=== PATIENT | female | born 1960 | race Caucasian/White ===

== ENCOUNTER → 2016-06-29 | Outpatient (REF) | payer MEDICARE, MEDICAID | LOC: M LAB REF 13:19 | PROVIDERS: ATTEND Internal Medicine Medical Oncology | DX: C56.9 Malignant neoplasm of unspecified ovary (principal); G62.0 Drug-induced polyneuropathy ==

== ENCOUNTER → 2016-10-14 | Outpatient (REF) | payer MEDICARE, MEDICAID | LOC: M LAB REF 12:52 | PROVIDERS: ATTEND Internal Medicine Medical Oncology | DX: C56.9 Malignant neoplasm of unspecified ovary (principal) ==

== ENCOUNTER → 2017-02-21 | Outpatient (REF) | payer MEDICARE, MEDICAID | LOC: M LAB REF 08:06 | PROVIDERS: ATTEND Internal Medicine Medical Oncology | DX: C56.9 Malignant neoplasm of unspecified ovary (principal) ==

== ENCOUNTER → 2017-07-20 | Outpatient (REF) | payer MEDICARE, MEDICAID ==
[2017-07-22 10:57] LABS: CA 125 11.5 U/ML (<30.2)
== END ==
LOC: M LAB REF 13:33
DX: C56.9 Malignant neoplasm of unspecified ovary (principal)
CPT/HCPCS: 86304

== ENCOUNTER → 2017-08-02 | Outpatient (CLI) | payer MEDICARE, MEDICAID | LOC: M PLARAD 08:53 | DX: D56.9 Thalassemia, unspecified (principal); C56.1 Malignant neoplasm of right ovary (principal); C56.2 Malignant neoplasm of left ovary; C79.51 Secondary malignant neoplasm of bone | CPT/HCPCS: 78815 ==

== ENCOUNTER → 2017-08-23 | Outpatient (REF) | payer MEDICARE, MEDICAID ==
[2017-08-23 13:28] LABS: INR 0.94; PARTIAL THROMBOPLASTIN TIME 32.3 SECONDS (26.8-37.9); PROTHROMBIN TIME 12.6 SECONDS (12.4-14.5)
== END ==
LOC: M LAB REF 11:57
DX: C56.9 Malignant neoplasm of unspecified ovary (principal); Z01.812 Encounter for preprocedural laboratory examination
CPT/HCPCS: 85610

== ENCOUNTER → 2017-09-06 | Outpatient (CLI) | payer MEDICARE, MEDICAID ==
[~2017-09-06] MED LIST: LIDOCAINE 1% MDV 20ML VIAL As Ordered
== END ==
LOC: M RADPRO 08:42
DX: R91.8 Other nonspecific abnormal finding of lung field (principal); C79.51 Secondary malignant neoplasm of bone; Z88.0 Allergy status to penicillin; Z79.899 Other long term (current) drug therapy
CPT/HCPCS: 32405

== ENCOUNTER → 2017-11-04 | Outpatient (REF) | payer MEDICARE, MEDICAID ==
[2017-11-04 12:21] LABS: INR 0.92; PROTHROMBIN TIME 12.4 SECONDS (12.4-14.5)
[2017-11-04 12:22] LABS: PARTIAL THROMBOPLASTIN TIME 30.3 SECONDS (26.8-37.9)
[2017-11-04 13:05] LABS: CA 125 12.1 U/ML (<30.2)
== END ==
LOC: M LAB REF 12:00
DX: C56.9 Malignant neoplasm of unspecified ovary (principal)
CPT/HCPCS: 86304

== ENCOUNTER → 2017-11-15 | Outpatient (CLI) | payer MEDICARE, MEDICAID ==
[~2017-11-15] MED LIST changes: +CLINDAMYCIN 600 MG/50 ML PREMIX BAG As Ordered; -LIDOCAINE 1% MDV 20ML VIAL As Ordered; +LIDOCAINE 2% MDV 20 ML VIAL As Ordered
== END | disposition home or self-care (01) ==
LOC: M IRPRO 09:32
DX: C56.9 Malignant neoplasm of unspecified ovary (principal); C79.9 Secondary malignant neoplasm of unspecified site
CPT/HCPCS: 36561

== ENCOUNTER → 2017-11-25 | Outpatient (REF) | payer MEDICARE, MEDICAID ==
[2017-11-25 14:37] LABS: CA 125 10.6 U/ML (<30.2)
== END ==
LOC: M LAB REF 13:30
DX: C56.9 Malignant neoplasm of unspecified ovary (principal)
CPT/HCPCS: 86304

== ENCOUNTER 2017-12-09 11:58 | Emergency (ER) | payer MEDICARE, MEDICAID ==
[2017-12-09] MEDS: SODIUM CHLORIDE 0.9% INJ 10 ML SYR IV (13:20)
== END 2017-12-09 13:20 | disposition home or self-care (01) ==
LOC: M ED 11:58
DX: R55 Syncope and collapse (principal); T45.1X5A Adverse effect of antineoplastic and immunosuppressive drugs, initial encounter; C56.9 Malignant neoplasm of unspecified ovary; Y92.9 Unspecified place or not applicable; Y93.9 Activity, unspecified; Z79.899 Other long term (current) drug therapy; Z88.0 Allergy status to penicillin
CPT/HCPCS: 86304

== ENCOUNTER → 2017-12-16 | Outpatient (REF) | payer MEDICARE, MEDICAID | LOC: M LAB REF 13:18 | DX: C56.9 Malignant neoplasm of unspecified ovary (principal); C78.2 Secondary malignant neoplasm of pleura; C79.51 Secondary malignant neoplasm of bone | CPT/HCPCS: 86304 ==

== ENCOUNTER 2017-12-24 12:34 | Inpatient (IN) | payer MEDICARE, MEDICAID ==
[2017-12-24 14:36] LABS: HEMATOCRIT 30.7 % (36.0-47.0); HEMOGLOBIN 10.4 g/dl (12.0-15.5); MEAN CORPUSCULAR HEMOGLOBIN 34.1 pg (27.0-33.0); MEAN CORPUSCULAR HGB CONC 33.9 g/dl (32.0-36.5); MEAN CORPUSCULAR VOLUME 100.7 fl (80.0-96.0); PLATELET COUNT, AUTOMATED 142 10^3/uL (150-450); RED BLOOD COUNT 3.05 10^6/uL (4.00-5.40); RED CELL DISTRIBUTION WIDTH 18.3 % (11.5-14.5)
[2017-12-24 14:37] LABS: ADD MANUAL DIFFER YES; DIFF SLIDE NUMBER 132; POS COUNT POS FLAG; POSITIVE MORPH POS FLAG
[2017-12-24 15:03] LABS: ALBUMIN 3.5 GM/DL (3.2-5.2); ALKALINE PHOSPHATASE 158 U/L (45-117); ALT/SGPT 52 U/L (12-78); ANION GAP 7 MEQ/L (8-16); AST/SGOT 14 U/L (7-37); BILIRUBIN,DIRECT 0.1 MG/DL (0.0-0.2); BILIRUBIN,TOTAL 0.4 MG/DL (0.2-1.0); BLOOD UREA NITROGEN 15 MG/DL (7-18); CALCIUM LEVEL 8.7 MG/DL (8.5-10.1); CARBON DIOXIDE LEVEL 28 MEQ/L (21-32); CHLORIDE LEVEL 107 MEQ/L (98-107); GLOMERULAR FILTRATION RATE > 60.0 (>51); GLUCOSE, FASTING 109 MG/DL (70-100); SODIUM LEVEL 142 MEQ/L (136-145); TOTAL PROTEIN 7.9 GM/DL (6.4-8.2)
[2017-12-24 15:03] LABS: LACTIC ACID SEPSIS PROTOCOL 1.2 MMOL/L (0.4-2.0)
[2017-12-24 15:20] LABS: BANDS 6 % (< 11); LYMPHOCYTES 12 % (16-52); MONOCYTES 4 % (0-8); NEUTROPHILS 78 % (35-75)
[2017-12-24 15:21] LABS: PLATELET ESTIMATE DECREASED (NORMAL); POLYCHROMASIA 1+
[2017-12-24 15:22] LABS: ANISOCYTOSIS 2+
[2017-12-24 16:02] LABS: APPEARANCE, URINE CLEAR (CLEAR); BACTERIA, URINE AUTO NEGATIVE (NEGATIVE); BILIRUBIN, URINE AUTO NEGATIVE (NEGATIVE); BLOOD, URINE BLOOD NEGATIVE (NEGATIVE); CALCIUM OXALATE CRYSTALS SMALL; COLOR, URINE YELLOW (YELLOW); GLUCOSE, URINE (UA) AUTO NEGATIVE (NEGATIVE); KETONE, URINE AUTO TRACE mg/dL (NEGATIVE); LEUKOCYTE ESTERASE, URINE AUTO TRACE (NEGATIVE); MUCUS, URINE SMALL (NEGATIVE); NITRITE, URINE AUTO NEGATIVE (NEGATIVE); PROTEIN, URINE AUTO 1+ mg/dL (NEGATIVE); RBC, URINE AUTO 3 /HPF (0-3); SPECIFIC GRAVITY URINE AUTO 1.035 (1.002-1.035); SQUAMOUS EPITHELIAL CELL UR AU 0 /HPF (0-6); WBC, URINE AUTO 1 /HPF (0-3)
[2017-12-24] MEDS: ONDANSETRON 4MG/2ML VIAL (J2405) IV (16:11)
[2017-12-24] MEDS ORDERED: PERCOCET 5MG/325MG TAB PO (16:45)
[2017-12-24] MEDS ORDERED: ONDANSETRON 4MG/2ML VIAL (J2405) IV (16:45)
[2017-12-24] MEDS ORDERED: BISACODYL 5 MG TAB PO (16:45)
[2017-12-24] MEDS ORDERED: ISOVUE-370 76% 100ML VIAL (Q9967) As Ordered (16:46)
[2017-12-24] MEDS: NS 1,000 ML IV (17:19)
[2017-12-24] MEDS: VANCOMYCIN HCL 1,000 MG, VIAL MATE ADAPTER 1 EACH in D5W 250 ML IV ×2 (17:19→23:49)
[2017-12-24] MEDS: PERCOCET 5MG/325MG TAB PO (18:53)
[2017-12-24] MEDS: CEFEPIME HCL 2 GM in D5W MINI-BAG PLUS 50 ML IV (21:30)
[2017-12-24] MEDS: GABAPENTIN 300 MG CAP PO (21:30)
[2017-12-24] MEDS: HEPARIN SOD (PORCINE) 5000 UNITS/ML VIAL SC (21:30)
[2017-12-24] MEDS: metroNIDAZOLE 500 MG in APPROPRIATE DILUENT 1 EA IV (22:24)
[2017-12-25] MEDS: metroNIDAZOLE 500 MG in APPROPRIATE DILUENT 1 EA IV ×3 (04:25→20:09)
[2017-12-25] MEDS: IPRATROPIUM 0.5MG/ALBUTEROL 2.5MG INH SOL UD 3ML (DUONEB)(J7620) NEB ×2 (04:42→11:32)
[2017-12-25] MEDS: CEFEPIME HCL 2 GM in D5W MINI-BAG PLUS 50 ML IV ×2 (05:44→18:16)
[2017-12-25] MEDS: HEPARIN SOD (PORCINE) 5000 UNITS/ML VIAL SC ×3 (05:44→21:07)
[2017-12-25 06:12] LABS: BASO % 0.2 % (0.0-1.0); HEMATOCRIT 27.7 % (36.0-47.0); HEMOGLOBIN 9.3 g/dl (12.0-15.5); IMMATURE GRANULOCYTE % 4.5 % (0-3.0); LYMPH # 0.9 10^3/uL (1.5-4.5); LYMPH % 7.4 % (24.0-44.0); MEAN CORPUSCULAR HEMOGLOBIN 33.8 pg (27.0-33.0); MEAN CORPUSCULAR HGB CONC 33.6 g/dl (32.0-36.5); MEAN CORPUSCULAR VOLUME 100.7 fl (80.0-96.0); MONO # 0.8 10^3/uL (0.0-0.8); MONO % 6.1 % (0.0-5.0); NEUTROPHILS # 10.1 10^3/uL (1.8-7.7); NEUTROPHILS % 81.8 % (36.0-66.0); PLATELET COUNT, AUTOMATED 148 10^3/uL (150-450); RED BLOOD COUNT 2.75 10^6/uL (4.00-5.40); RED CELL DISTRIBUTION WIDTH 18.7 % (11.5-14.5); WHITE BLOOD COUNT 12.3 10^3/uL (4.0-10.0)
[2017-12-25 06:35] LABS: ALBUMIN/GLOBULIN RATIO 0.75 (1.00-1.93); ALKALINE PHOSPHATASE 131 U/L (45-117); ALT/SGPT 42 U/L (12-78); ANION GAP 9 MEQ/L (8-16); AST/SGOT 12 U/L (7-37); BILIRUBIN,TOTAL 0.4 MG/DL (0.2-1.0); BLOOD UREA NITROGEN 10 MG/DL (7-18); CALCIUM LEVEL 8.2 MG/DL (8.5-10.1); CARBON DIOXIDE LEVEL 27 MEQ/L (21-32); CHLORIDE LEVEL 108 MEQ/L (98-107); CREATININE FOR GFR 0.59 MG/DL (0.55-1.30); GLOMERULAR FILTRATION RATE > 60.0 (>51); GLUCOSE, FASTING 169 MG/DL (70-100); POTASSIUM SERUM 3.7 MEQ/L (3.5-5.1); SODIUM LEVEL 144 MEQ/L (136-145)
[2017-12-25] MEDS: GABAPENTIN 300 MG CAP PO ×3 (10:44→21:07)
[2017-12-25] MEDS: OMEPRAZOLE 20 MG CAP PO (10:44)
[2017-12-25] MEDS: NS 1,000 ML IV ×3 (10:45→23:00)
[2017-12-25] MEDS: VANCOMYCIN HCL 1,000 MG, VIAL MATE ADAPTER 1 EACH in D5W 250 ML IV ×2 (10:45→21:08)
[2017-12-25] MEDS: PERCOCET 5MG/325MG TAB PO ×2 (14:39→22:51)
[2017-12-25] MEDS ORDERED: HEPARIN SOD (PORCINE) 5000 UNITS/ML VIAL As Ordered (21:03)
[2017-12-26] MEDS: metroNIDAZOLE 500 MG in APPROPRIATE DILUENT 1 EA IV (04:01)
[2017-12-26] MEDS: metroNIDAZOLE (FLAGYL) 500 MG TAB PO (05:18)
[2017-12-26] MEDS: CEFEPIME HCL 2 GM in D5W MINI-BAG PLUS 50 ML IV (05:19)
[2017-12-26] MEDS: HEPARIN SOD (PORCINE) 5000 UNITS/ML VIAL SC (05:19)
[2017-12-26] MEDS: OMEPRAZOLE 20 MG CAP PO (08:04)
[2017-12-26] MEDS: GABAPENTIN 300 MG CAP PO (08:04)
[2017-12-26] MEDS: PERCOCET 5MG/325MG TAB PO (08:05)
[2017-12-26 08:12] LABS: VANCOMYCIN LEVEL TROUGH 6.4 UG/ML (10.0-20.0)
[2017-12-26] MEDS: NS 1,000 ML IV (09:00)
[2017-12-26] MEDS: VANCOMYCIN HCL 1,000 MG, VIAL MATE ADAPTER 1 EACH in D5W 250 ML IV (09:00)
[2017-12-26 09:19] LABS: HEMATOCRIT 27.6 % (36.0-47.0); HEMOGLOBIN 9.6 g/dl (12.0-15.5); MEAN CORPUSCULAR HEMOGLOBIN 34.7 pg (27.0-33.0); MEAN CORPUSCULAR HGB CONC 34.8 g/dl (32.0-36.5); MEAN CORPUSCULAR VOLUME 99.6 fl (80.0-96.0); PLATELET COUNT, AUTOMATED 168 10^3/uL (150-450); RED BLOOD COUNT 2.77 10^6/uL (4.00-5.40); RED CELL DISTRIBUTION WIDTH 18.2 % (11.5-14.5); WHITE BLOOD COUNT 13.5 10^3/uL (4.0-10.0)
[2017-12-26 09:37] LABS: ANION GAP 9 MEQ/L (8-16); BLOOD UREA NITROGEN 10 MG/DL (7-18); CALCIUM LEVEL 8.2 MG/DL (8.5-10.1); CARBON DIOXIDE LEVEL 25 MEQ/L (21-32); CHLORIDE LEVEL 111 MEQ/L (98-107); CREATININE FOR GFR 0.54 MG/DL (0.55-1.30); GLOMERULAR FILTRATION RATE > 60.0 (>51); GLUCOSE, FASTING 134 MG/DL (70-100); POTASSIUM SERUM 3.7 MEQ/L (3.5-5.1); SODIUM LEVEL 145 MEQ/L (136-145)
== END 2017-12-26 11:30 | disposition home or self-care (01) | DRG 202 ==
LOC: M ED 12:34 → M ED INP 16:42 → M MS5PR 20:47
DX: J40 Bronchitis, not specified as acute or chronic (principal); C56.9 Malignant neoplasm of unspecified ovary; C78.02 Secondary malignant neoplasm of left lung; C78.2 Secondary malignant neoplasm of pleura; D72.829 Elevated white blood cell count, unspecified; K21.9 Gastro-esophageal reflux disease without esophagitis; K76.0 Fatty (change of) liver, not elsewhere classified; K44.9 Diaphragmatic hernia without obstruction or gangrene; M50.322 Other cervical disc degeneration at C5-C6 level; M50.223 Other cervical disc displacement at C6-C7 level; Z79.899 Other long term (current) drug therapy; Z88.0 Allergy status to penicillin; F17.200 Nicotine dependence, unspecified, uncomplicated; J44.9 Chronic obstructive pulmonary disease, unspecified

== ENCOUNTER → 2017-12-30 | Outpatient (REF) | payer MEDICARE, MEDICAID ==
[2017-12-30 15:06] LABS: CA 125 10.8 U/ML (<30.2)
== END ==
LOC: M LAB REF 13:27
DX: C56.9 Malignant neoplasm of unspecified ovary (principal)
CPT/HCPCS: 86304

== ENCOUNTER → 2018-02-10 | Outpatient (REF) | payer MEDICARE, MEDICAID ==
[2018-02-10 14:12] LABS: CA 125 9.9 U/ML (<30.2)
== END ==
LOC: M LAB REF 13:04
DX: Z00.00 Encounter for general adult medical examination without abnormal findings (principal); C56.9 Malignant neoplasm of unspecified ovary
CPT/HCPCS: 86304

== ENCOUNTER → 2018-03-03 | Outpatient (REF) | payer MEDICARE, MEDICAID ==
[2018-03-03 15:58] LABS: CA 125 12.7 U/ML (<30.2)
== END ==
LOC: M LAB REF 13:16
DX: C56.9 Malignant neoplasm of unspecified ovary (principal); C78.2 Secondary malignant neoplasm of pleura
CPT/HCPCS: 86304

== ENCOUNTER → 2018-05-09 | Outpatient (CLI) | payer MEDICARE, MEDICAID ==
[~2018-05-09] MED LIST changes: +ACID1CAP5 PO; +AMOX; +AMOX500T2 PO; -CLINDAMYCIN 600 MG/50 ML PREMIX BAG As Ordered; +GABA-843 PO; +LEVO500T3 PO; -LIDOCAINE 2% MDV 20 ML VIAL As Ordered; +OMEP40CA2 PO; +OXYC-403 PO; +PERC10TA26 PO; +TRAM50TA2 PO; +VENTAER INH; +VOLT1GEL15 TOP
--- NOTE | 2018-05-09 21:35 | REP ---
Whole body PET CT scanning for monitoring response for ovarian carcinoma: Comparison is the PET CT scan dated 08/02/2017. The patient underwent right parasternal nodule core biopsies on 09/06/2017. The biopsy specimen demonstrated fragments of well to moderately differentiated adenocarcinoma, consistent with metastatic ovarian primary. The Whole-body scanning is performed from skull base to the upper thighs, as previously. Neck and supraclavicular areas: There are no hypermetabolic foci. This is unchanged. Chest: There are multiple pleural based hypermetabolic foci in the left hemithorax, unchanged in size or number. There are two left upper lobe foci, unchanged. There are two right parasternal foci, unchanged. No new hypermetabolic foci are identified in the chest. Abdomen, pelvis and upper thighs: There are no hypermetabolic foci. This is unchanged. Impression: There are multiple hypermetabolic foci in the chest, not significantly changed from the prior study. No new foci are identified. The study is performed with 8.66 mCi of F 18 Electronically Signed by Rosalino Zhao MD 05/09/2018 09:26 P
== END ==
LOC: M PLARAD 10:49
PROVIDERS: ATTEND Internal Medicine Medical Oncology
DX: C56.1 Malignant neoplasm of right ovary (principal); C56.2 Malignant neoplasm of left ovary; R91.8 Other nonspecific abnormal finding of lung field
CPT/HCPCS: 78815; A9552

== ENCOUNTER → 2018-09-27 | Outpatient (CLI) | payer MEDICARE, MEDICAID ==
[~2018-09-27] MED LIST changes: +ZITHTAB PO
--- NOTE | 2018-09-27 13:52 | REP ---
PET/CT: HISTORY: Staging ovarian cancer. COMPARISONS: Comparison PET/CT study May 09, 2018. There is also a PET/CT study from August 02, 2017. TECHNIQUE: 52 minutes following the intravenous injection of a 9.33 mCi dose of F-18 FDG, three-dimensional PET scintigraphy is acquired from the skull base to the proximal thighs. Triplanar noncontrast CT scanning is acquired through the same anatomic range for attenuation correction, and image registration with scan parameters optimized to minimize radiation exposure to the patient. PET scintigraphy and CT datasets were fused and displayed on a workstation with multiplanar and projection display capability. PET/CT FINDINGS: There is multifocal hypermetabolic uptake involving lymph nodes and the left pleural space. Morphologically, these sites have not changed in size or increased in number. Several of the foci show higher in avidity. Multiple foci of hypermetabolic uptake are again seen distributed in the pleural space in the left hemithorax. The most avid of these is medially at the apex of the major fissure on the left where maximum standard uptake value today is 14.65. Most recent PET/CT avidity in this location was 8.98. The remainder of the theo hypermetabolic foci range from a maximum SUV value is 6.2-7.5. In addition there is a tiny left epicardial fat lymph node focus of borderline uptake (SUV 2.09). The focus noted to the right of the xyphoid process previously has maximum standard uptake value today of 4.23. A small portacaval lymph node is again seen demonstrating maximum standard uptake value of 3.56 today. Previously 2.2. No new theo focus. The study is otherwise unremarkable. IMPRESSION: There is multifocal metastatic hypermetabolic uptake principally involving the left pleural space and two or three lymph node foci. These are unchanged morphologically. Several demonstrate increased activity compared to the prior PET/CT. Electronically Signed by sEpinoza Landaverde MD 09/27/2018 02:57 P
== END ==
LOC: M PLARAD 08:41
PROVIDERS: ATTEND Internal Medicine Hematology & Oncology
DX: C56.1 Malignant neoplasm of right ovary (principal); R59.0 Localized enlarged lymph nodes
CPT/HCPCS: 78815; A9552

== ENCOUNTER → 2018-12-19 | Outpatient (CLI) | payer MEDICARE, MEDICAID ==
[~2018-12-19] MED LIST changes: +ENDO5TAB PO; +HYDR-4517 PO
== END ==
LOC: M PLARAD 08:42
PROVIDERS: ATTEND Internal Medicine Hematology & Oncology
DX: Z53.9 Procedure and treatment not carried out, unspecified reason (principal); C15.9 Malignant neoplasm of esophagus, unspecified

== ENCOUNTER → 2019-01-02 | Outpatient (CLI) | payer MEDICARE, MEDICAID ==
--- NOTE | 2019-01-02 14:32 | REP ---
PET/CT: HISTORY: Restaging ovarian cancer. Comparison PET/CT study September 27, 2018 and May 09, 2018. TECHNIQUE: 49 minutes following the intravenous injection of a 9.54 mCi dose of F-18 FDG, three-dimensional PET scintigraphy is acquired from the skull base to the proximal thighs. Triplanar noncontrast CT scanning is acquired through the same anatomic range for attenuation correction, and image registration with scan parameters optimized to minimize radiation exposure to the patient. PET scintigraphy and CT datasets were fused and displayed on a workstation with multiplanar and projection display capability. PET/CT FINDINGS: Multiple hypermetabolic, pleural-based nodular foci are again seen in the left chest morphologically unchanged from prior study. A few of these contain calcifications. Two or three of these show some decrease in avidity. They range in SUV avidity from 2.0-9.74. No new pulmonary parenchymal uptake is seen. No new pleural based uptake is appreciated. No abnormal abdominal or pelvic hypermetabolic uptake is seen. There is a punctate calcification and a normal-sized lymph node in the portacaval region to the right of midline in the upper abdomen. This shows borderline uptake at the SUV of 2.08. It is unchanged in size. IMPRESSION: Stable hypermetabolic thoracic disease. No new focus of hypermetabolic uptake is seen. Electronically Signed by Espinoza Landaverde MD 01/02/2019 04:57 P
== END ==
LOC: M PLARAD 08:32
PROVIDERS: ATTEND Internal Medicine Hematology & Oncology
DX: C56.1 Malignant neoplasm of right ovary (principal); R91.8 Other nonspecific abnormal finding of lung field
CPT/HCPCS: 78815; A9552

== ENCOUNTER → 2019-05-23 | Outpatient (CLI) | payer MEDICARE, MEDICAID ==
[~2019-05-23] MED LIST changes: +NEOM1SOL13; -OMEP40CA2 PO; +OMEP40CA97 PO
--- NOTE | 2019-05-25 13:10 | REP ---
PET/CT: HISTORY: Restaging metastatic ovarian carcinoma. COMPARISONS: Comparison PET-CT study, January 02, 2019 and September 27, 2018 are reviewed. TECHNIQUE: 50 minutes following the intravenous injection of a 8.18 mCi dose of F-18 FDG, three-dimensional PET scintigraphy is acquired from the skull base to the proximal thighs. Triplanar noncontrast CT scanning is acquired through the same anatomic range for attenuation correction, and image registration with scan parameters optimized to minimize radiation exposure to the patient. PET scintigraphy and CT datasets were fused and displayed on a workstation with multiplanar and projection display capability. PET/CT FINDINGS: There are numerous hypermetabolic predominately pleural-based nodular foci again seen scattered throughout the left chest cavity. In general, these show increased avidity since the most recent prior study of January 02, 2019. They do not, however, appear larger in size. No pulmonary parenchymal hypermetabolic uptake is seen. There are new foci of increased uptake on the scintigraphic images along the major fissure on the left. The corresponding nodular opacities, however, do not appear to be changed or new. There are two foci in the right anterior para xyphoid and parasternal chest wall, which have increased their avidity. They are not new foci, however. The hypermetabolic pleural-based foci in the left chest range in avidity from 2.73 to 11.69. The most hypermetabolic focus is in the left superior chest adjacent to the posterior aortic arch and thoracic vertebral column. The previously identified aortocaval lymph node in the upper abdomen has increased its avidity and slightly increased in size. It has a short-axis dimension of 12 mm today, previously 10 mm. Maximum SUV value in this lymph node today is 4.04, previously 2.08. It is now felt to be hypermetabolic. No other abnormal hypermetabolic uptake is seen in the abdomen or pelvis. IMPRESSION: Increase in the avidity in previously noted hypermetabolic sites which may represent progression. For the most part, the foci are morphologically stable. Slight increase in the size of the aortocaval lymph node in the upper abdomen. Electronically Signed by Espinoza Landaverde MD 05/25/2019 02:01 P
== END ==
LOC: M PLARAD 08:53
PROVIDERS: ATTEND Internal Medicine Hematology & Oncology
DX: C56.1 Malignant neoplasm of right ovary (principal)
CPT/HCPCS: 78815; A9552

== ENCOUNTER → 2019-06-29 | Outpatient (CLI) | payer MEDICARE, MEDICAID ==
--- NOTE | 2019-06-29 17:19 | REP ---
Clinical: Lung screening. History smoking. History of ovarian cancer. Comparison: 12/24/2017 Technique: Axial low-dose noncontrast images from the thoracic inlet to the upper abdomen using lung screening technique. Findings: The lung matthews are well-aerated. Small scattered relatively stable subpleural and perifissural nodules are again identified and measure up to approximately 15 mm. No new consolidation or mass lesion. No pleural effusion/reaction or pneumothorax. Tracheobronchial tree is patent. Mediastinum demonstrates mild atherosclerotic changes of the coronary arteries without cardiomegaly. Impression: Lung-RADS category II-S. Subpleural and perifissural nodules up to 15 mm similar to prior examination. The patient has a history of ovarian cancer with metastasis. Electronically Signed by Misha Joyce MD 06/29/2019 05:11 P
== END ==
LOC: M RAD 08:56
PROVIDERS: ATTEND Internal Medicine Hematology
DX: F17.210 Nicotine dependence, cigarettes, uncomplicated (principal)

== ENCOUNTER → 2019-07-27 | Outpatient (CLI) | payer MEDICARE, MEDICAID ==
[~2019-07-27] MED LIST changes: +GASTROGRAFIN SOLUTION 30ML (Q9963) As Ordered ONE; +ISOVUE-370 76% 100ML VIAL (Q9967) As Ordered ONE; +LEVA1TAB2 PO; +MARI2.5C PO; +PROC10TA4 PO; +ZOFR8TAB24 PO
--- NOTE | 2019-07-27 11:54 | REPVR ---
PROCEDURE INFORMATION: Exam: CT Abdomen And Pelvis Without And With Contrast Exam date and time: 07/27/2019 10:41 AM Age: 58 years old Clinical indication: Condition or disease; Cancer; Other: Ovarian; Prior surgery; Surgery date: 6+ months; Surgery type: Hysterectomy; Additional info: Progressive ovarian CA TECHNIQUE: Imaging protocol: Computed tomography of the abdomen and pelvis without and with intravenous contrast. Oral contrast was administered. Radiation optimization: All CT scans at this facility use at least one of these dose optimization techniques: automated exposure control; mA and/or kV adjustment per patient size (includes targeted exams where dose is matched to clinical indication); or iterative reconstruction. Contrast material: ISOVUE 370; Contrast volume: 100 ml; Contrast route: IV; Other contrast: Route: Oral, Material: GASTROGRAPHIN, Volume: 10ML GASTROGRAPHIN IN 290 ML WATER; COMPARISON: CT ABD PELVIS WITH CONTRAST 12/24/2017 4:47 PM FINDINGS: Liver: Diffuse hepatic steatosis. Gallbladder and bile ducts: There has been a cholecystectomy. Unchanged mild prominence of the extrahepatic duct, which likely reflects dynamic changes following cholecystectomy. No significant intrahepatic ductal dilatation. Pancreas: Normal. No ductal dilation. Spleen: Normal. No splenomegaly. Adrenals: Benign 11 mm left adrenal adenoma. Mild left adrenal gland thickening. Kidneys and ureters: 7 mm left renal cortical hypodensity is too small to definitively characterize, but likely represents a cyst. No hydronephrosis. Stomach and bowel: Colonic diverticulosis. No evidence of acute diverticulitis. Appendix: No evidence of appendicitis. Intraperitoneal space: Unremarkable. No free air. No significant fluid collection. Vasculature: Moderate atherosclerotic changes. Fusiform ectasia of the infrarenal abdominal aorta, measuring up to 2.3 cm x 1.9 cm. Lymph nodes: Redemonstration of mildly prominent periportal lymph nodes, measuring up to 12 mm in short axis dimension. Calcified posterior mediastinal lymph node is suggestive of prior granulomatous disease. Bladder: Bladder is nondistended, limiting evaluation. Reproductive: The patient appears to be status post hysterectomy. Bones/joints: Degenerative change of the spine. Soft tissues: Redemonstration of a soft tissue density implant in the left cardiophrenic fat pad, measuring 15 mm x 7 mm, essentially unchanged. Redemonstration of a soft tissue density lesion, containing punctate calcifications, along the right ventral caudal margin of the scapula. This measures 2.4 cm x 2.0 cm. IMPRESSION: 1. Unchanged mildly prominent periportal lymph nodes. 2. Moderate atherosclerotic changes. 3. Redemonstration of soft tissue density implants in the left cardiophrenic fat pad and along the caudal aspect of the sternum. 4. Diffuse hepatic steatosis. 5. Colonic diverticulosis. COMMENT: 1. Consistent with the [employer]'s Incidental Findings Committee white paper (J Am Effie Radiol 2017): Any incidental adrenal lesion less than 1.0 cm is likely benign. No follow-up imaging is recommended for these lesions per consensus recommendations based on imaging criteria. Further lab evaluation could be pursued if warranted based on clinical findings. 2. Consistent with the [employer]'s Incidental Findings Committee white paper (J Am Effie Radiol 2018): Any incidental cystic renal lesion classified in this report as too small to characterize or simple appearing is likely a benign cyst. No follow-up imaging is recommended for these lesions per consensus recommendations based on imaging criteria. Electronically signed by: Radha Lyons On 07/27/2019 11:54:54 AM
== END ==
LOC: M RAD 08:57
PROVIDERS: ATTEND Internal Medicine Hematology & Oncology
DX: C56.9 Malignant neoplasm of unspecified ovary (principal); K76.0 Fatty (change of) liver, not elsewhere classified; Z90.49 Acquired absence of other specified parts of digestive tract; D35.02 Benign neoplasm of left adrenal gland; N28.89 Other specified disorders of kidney and ureter; K57.90 Diverticulosis of intestine, part unspecified, without perforation or abscess without bleeding; I25.10 Atherosclerotic heart disease of native coronary artery without angina pectoris; I77.819 Aortic ectasia, unspecified site
CPT/HCPCS: 74178; Q9963; Q9967

== ENCOUNTER → 2019-08-01 | Outpatient (CLI) | payer MEDICARE, MEDICAID ==
[~2019-08-01] MED LIST changes: -GASTROGRAFIN SOLUTION 30ML (Q9963) As Ordered ONE; -ISOVUE-370 76% 100ML VIAL (Q9967) As Ordered ONE; +LOVE1INJ SC
--- NOTE | 2019-08-13 13:10 | REP ---
PET/CT: History: Restaging ovarian cancer. The study is acquired on August 16, 2019 and is presented to me for interpretation on August 13, 2019. Comparisons: Comparison PET/CT study May 23, 2019 and January 02, 2019. Comparison abdomen and pelvis CT study July 27, 2019. TECHNIQUE: 52 minutes following the intravenous injection of a 9.01 mCi dose of F-18 FDG, three-dimensional PET scintigraphy is acquired from the skull base to the proximal thighs. Triplanar noncontrast CT scanning is acquired through the same anatomic range for attenuation correction, and image registration with scan parameters optimized to minimize radiation exposure to the patient. PET scintigraphy and CT datasets were fused and displayed on a workstation with multiplanar and projection display capability. PET/CT Findings: There are multiple hypermetabolic predominately pleural-based foci of uptake and nodularity in the left chest. These range in uptake from 4 to 14.39. They are essentially unchanged from most recent prior PET/CT. Two small hypermetabolic theo foci are again seen in the epicardial fat to the left of midline. There are hypermetabolic foci again noted in the right parasternal and para-xyphoid region unchanged. There is a hypermetabolic portacaval lymph node to the right of midline with maximum standard uptake value 4.06. This is felt to be unchanged. No new hypermetabolic theo focus is seen in the abdomen or chest. No abnormal skeletal focus. Impression: Stable changes in the left pleural space parasternal and aortocaval lymph nodes since the most recent prior PET/CT study. Electronically Signed by Espinoza Landaverde MD 08/13/2019 02:24 P
== END ==
LOC: M PLARAD 10:20
PROVIDERS: ATTEND Internal Medicine Hematology & Oncology
DX: C56.1 Malignant neoplasm of right ovary (principal)
CPT/HCPCS: 78815; A9552

== ENCOUNTER 2019-09-03 13:43 | Emergency (ER) | payer MEDICARE, MEDICAID ==
[~2019-09-03] VITALS: Ht 170.2 cm; Wt 71.0 kg
[~2019-09-03 13:43] MED LIST changes: +DRON2.5C11 PO
[2019-09-03] MEDS ORDERED: SODIUM CHLORIDE 0.9% INJ 10 ML SYR IV PRN (14:00)
[2019-09-03 14:11] LABS: BASO % 0.4 % (0.0-1.0); EOS % 0.2 % (0.0-3.0); HEMATOCRIT 42.3 % (36.0-47.0); HEMOGLOBIN 14.4 g/dl (12.0-15.5); LYMPH # 2.4 10^3/uL (1.5-5.0); MEAN CORPUSCULAR VOLUME 96.8 fl (80.0-96.0); MONO # 0.1 10^3/uL (0.0-0.8); MONO % 2.6 % (0.0-5.0); NEUTROPHILS # 2.4 10^3/uL (1.5-8.5); NEUTROPHILS % 48.6 % (36.0-66.0); PLATELET COUNT, AUTOMATED 383 10^3/uL (150-450); RED BLOOD COUNT 4.37 10^6/uL (4.00-5.40); WHITE BLOOD COUNT 4.9 10^3/uL (4.0-10.0)
[2019-09-03 14:15] LABS: INR 1.01
[2019-09-03 14:30] LABS: BLOOD UREA NITROGEN 15 MG/DL (7-18); CALCIUM LEVEL 8.8 MG/DL (8.5-10.1); CARBON DIOXIDE LEVEL 25 MEQ/L (21-32); CHLORIDE LEVEL 112 MEQ/L (98-107); CK-MB VALUE MASS < 1.0 NG/ML (<3.6); CPK CREATINE PHOSPHOKINASE 35 U/L (26-192); CREATININE FOR GFR 0.63 MG/DL (0.55-1.30); GLOMERULAR FILTRATION RATE > 60.0 (>51); GLUCOSE, FASTING 168 MG/DL (70-100); MB/CK RELATIVE INDEX 2.86 (< OR =4); POTASSIUM SERUM 4.1 MEQ/L (3.5-5.1); SODIUM LEVEL 144 MEQ/L (136-145); TROPONIN I < 0.02 NG/ML (< 0.10)
[2019-09-03] MEDS ORDERED: ISOVUE-370 76% 100ML VIAL (Q9967) As Ordered ONE (14:39)
--- NOTE | 2019-09-03 14:40 | REP ---
Portable chest, 02:21 p.m., single AP view with the patient sitting: Comparison is 12/24/2017. The lung matthews are clear. The cardiac size is normal. The tiffanie, mediastinum, and skeletal structures are unremarkable. There is a right IJ central venous catheter, unchanged. Impression: Negative portable chest. There is no interval change. Electronically Signed by Rosalino Zhao MD 09/03/2019 02:31 P
--- NOTE | 2019-09-03 15:58 | REP ---
CT pulmonary angiogram: With IV contrast. History: Rule out pulmonary embolus. Comparison studies: Comparison CT study December 24, 2017. Contrast dose: 75 mL of Isovue [address] technique: Helical scanning is acquired and overlapping 1.5 mm and contiguous 3 mm axial images are reformatted. In addition, maximum intensity projection and multiplanar re-formation images are generated in sagittal and coronal imaging projections. CT pulmonary angiographic findings: There is good opacification in the pulmonary arterial tree. There is no CT evidence of pulmonary embolism. The thoracic aorta shows no evidence of aneurysm or dissection. There is some vascular calcification. No hilar or mediastinal mass or adenopathy is observed. No pleural or pericardial effusion is seen. There is calcific pleural plaquing in the left lung base. There is multinodular pleural thickening and multiple foci along the left pleural space including the major fissure. This it is similar to the prior CT findings. There is a small stable 5 mm nodule in the left lower lobe. There is evidence of a suture line in the left apex. No new pulmonary nodule or focal infiltrate is seen. There does not appear to be right pleural involvement. No adrenal lesion is seen. There are clips in the right upper quadrant post cholecystectomy. There are small lymph nodes in the celiac axis region of the upper abdomen which are unchanged from prior CT. No bony destructive lesion is appreciated. There is discogenic sclerosis in the lower thoracic spine. Impression: No CT evidence of pulmonary embolus. Stable nodular pleural changes left hemithorax. Right-sided [id number] catheter. No acute cardiopulmonary changes. Electronically Signed by Espinoza Landaverde MD 09/03/2019 05:45 P
[2019-09-03] MEDS: IPRATROPIUM 0.5MG/ALBUTEROL 2.5MG INH SOL UD 3ML (DUONEB)(J7620) NEB SCH ×2 (16:41→17:42)
[2019-09-03] MEDS ORDERED: NS 1,000 ML IV ONE (17:00)
[2019-09-03] MEDS ORDERED: IPRATROPIUM 0.5MG/ALBUTEROL 2.5MG INH SOL UD 3ML (DUONEB)(J7620) NEB PRN (17:00)
[2019-09-03 18:04] VITALS: O2SAT 92
[2019-09-03 18:20] VITALS: BP 129/78
[2019-09-03] MEDS ORDERED: IPRATROPIUM 0.5MG/ALBUTEROL 2.5MG INH SOL UD 3ML (DUONEB)(J7620) NEB SCH (20:00)
--- NOTE | 2019-09-03 20:41 | ECGEPIP ---
[facility] - ED Test Date: 2019-09-03 Pat Name: AN LOBATO Department: Room: - Gender: Female Investment Director: gurmeet : 1960 Requested By: Rupesh Bardales Order Number: [id number] Reading MD: Hui Da Silva Measurements Intervals [place] Rate: 77 P: 257 VT: 124 QRS: 81 QRSD: 94 T: 79 QT: 394 QTc: 448 Interpretive Statements SINUS RHYTHM ABNORMAL RHYTHM ECG NO PRIOR Electronically Signed on 09-03-2019 20:40:44 EDT by Hui Da Silva
[2019-09-03] MEDS ORDERED: raNITIdine SYRUP 150 MG/10 ML UDC PO SCH (21:00)
[2019-09-04] MEDS ORDERED: methylPREDNISolone INJ 125 MG/2 ML VIAL (J2930) IV SCH
[2019-09-18] MEDS ORDERED: PERC10TA26 PO (12:13)
[2019-09-18] MEDS ORDERED: DRON2.5C11 PO (12:13)
== END 2019-09-03 18:40 | disposition home or self-care (01) ==
LOC: M ED 13:43 → M PCU 13:44 → UNDOADMOB 13:44 → M ED INP 16:56 → UNDODISOB 16:56 → ENRESERV 17:06 → M PCU 18:40
DX: J44.9 Chronic obstructive pulmonary disease, unspecified (principal); R09.02 Hypoxemia; R00.1 Bradycardia, unspecified; R21 Rash and other nonspecific skin eruption; T45.1X5A Adverse effect of antineoplastic and immunosuppressive drugs, initial encounter; T45.0X5A Adverse effect of antiallergic and antiemetic drugs, initial encounter; C56.9 Malignant neoplasm of unspecified ovary; C78.00 Secondary malignant neoplasm of unspecified lung; K22.70 Barrett's esophagus without dysplasia; K21.9 Gastro-esophageal reflux disease without esophagitis; Z79.899 Other long term (current) drug therapy; Z88.0 Allergy status to penicillin; Z88.8 Allergy status to other drugs, medicaments and biological substances
CPT/HCPCS: 36415; 36591; 36600; 71045; 71275; 80053; 81001; 82550; 82553; 82803; 84484; 85025; 85027; 85610; 85730; 87486; 87581; 87633; 87798; 93005; 93041; 94640; 96367; 96375; 96411; 96413; 96417; 99284; J1100; J1200; J1453; J1642; J2469; J2930; J9035; J9045; J9201; Q9967

== ENCOUNTER → 2019-10-30 | Outpatient (CLI) | payer MEDICARE, MEDICAID ==
--- NOTE | 2019-10-30 12:07 | REP ---
PET/CT: HISTORY: Restaging bilateral ovarian carcinoma. COMPARISONS: Comparison PET/CT study, August 01, 2019. TECHNIQUE: 45 minutes following the intravenous injection of a 8.13 mCi dose of F-18 FDG, three-dimensional PET scintigraphy is acquired from the skull base to the proximal thighs. Triplanar noncontrast CT scanning is acquired through the same anatomic range for attenuation correction, and image registration with scan parameters optimized to minimize radiation exposure to the patient. PET scintigraphy and CT datasets were fused and displayed on a workstation with multiplanar and projection display capability. PET/CT FINDINGS: Today's PET/CT study again demonstrates multiple small nodular foci of pleural hypermetabolic uptake scattered about the left chest. Hypermetabolic uptake foci are seen in the paramanubrial region on the right and in the paraxiphoid region on the right. Many of these foci show decreased in avidity. Maximum standard uptake value currently in the pleural sites ranges up to 5.56. This left upper lobe pleural site which is currently 5.56 in SUV was previously 8.27. The most avid focus of increased uptake in the left chest is just posterior to the left aortic arch. Maximum standard uptake value here currently is 13.69. Previously, this focus showed maximum standard uptake value of 14.39. The focus appears slightly smaller. The right paramanubrial focus currently has maximum SUV of 3.77, previously 5.25. The right paraxiphoid chest wall focus currently has a maximum SUV value of 3.52, previously 6.45. The portacaval lymph node in the upper abdomen is improved. Maximum standard uptake value here is 2.38, no longer hypermetabolic. Previously, this lymph node SUV was 4.06. The hypermetabolic focus previously noted in the epicardial fat on the left is not seen today. No new abnormal hypermetabolic focus is seen in the abdomen or pelvis. Study is otherwise unremarkable. IMPRESSION: Multiple hypermetabolic foci remain predominately pleural-based in the left chest as above with right parasternal and right paraxiphoid chest wall foci and a single theo focus in the upper abdomen. Several of these foci show improved avidity. No new focus is seen. Electronically Signed by Espinoza Landaverde MD 10/30/2019 04:33 P
== END ==
LOC: M PLARAD 08:29
PROVIDERS: ATTEND Internal Medicine Medical Oncology
DX: C56.1 Malignant neoplasm of right ovary (principal); C56.2 Malignant neoplasm of left ovary
CPT/HCPCS: 78815; A9552

== ENCOUNTER → 2020-02-05 | Outpatient (CLI) | payer MEDICARE, MEDICAID ==
--- NOTE | 2020-03-21 13:54 | REP ---
WHOLE BODY PET-CT SCAN: Delay in reporting results from hospital computer system malfunction from malware/ ransomware. HISTORY: Restaging of ovarian cancer. The study is presented to me for the first time today on 02/07/20. COMPARISON: 10/30/19 and 08/01/19. FINDINGS: NECK AND SUPERCLAVICUALR AREAS: There is artifactual uptake in the tonsillar tissues. No hypermetabolic foci are identified. CHEST: There is a small hypermetabolic focus in the right lateral margin of the upper sternum, not significantly changed. There is a small hypermetabolic focus along the lateral margin of the xiphoid process, not significantly changed. There are small pleural-based foci in the left hemithorax, not significantly changed. There is a hypermetabolic focus in the left epicardial fat, not significantly changed. There is an intense hypermetabolic focus along the posterior margin of the aortic arch, not significantly changed. No new foci are identified. ABDOMEN, PELVIS AND UPPER THIGHS: The previously identified uptake in a paracaval node is no longer identified. No new foci are identified in the abdomen, pelvis or upper thighs. IMPRESSION: Multiple hypermetabolic foci are again identified in the chest. There are no new foci. The previous paracaval node in the abdomen is no longer identified. There are no other abdominal or pelvic foci. No new foci are identified. The study is performed with 8.25 mCi of F18 FTG. MTDD
== END ==
LOC: M PLARAD 09:00
PROVIDERS: ATTEND Internal Medicine Medical Oncology
DX: C56.1 Malignant neoplasm of right ovary (principal); C56.2 Malignant neoplasm of left ovary
CPT/HCPCS: 78815; A9552

== ENCOUNTER → 2020-05-13 | Outpatient (CLI) | payer MEDICARE, MEDICAID ==
--- NOTE | 2020-05-13 11:31 | REP ---
INDICATION: CHEST PAIN COMPARISON: 09/03/2019 as well as other prior exams. TECHNIQUE: PA/Lateral FINDINGS: Lungs: Clear, no infiltrate. Heart: Normal in size. Mediastinum: Mediastinal silhouette unremarkable. Pleural angles: Unremarkable.. Bones and soft tissues: Unremarkable. Right MediPort catheter is again seen with tip in the superior vena cava. IMPRESSION: No acute pulmonary disease. <Electronically signed by Rosalino Correia > 05/13/20 [id number]
== END ==
LOC: M RAD 10:56
PROVIDERS: ATTEND Internal Medicine Medical Oncology
DX: R07.9 Chest pain, unspecified (principal)

== ENCOUNTER → 2020-07-01 | Outpatient (CLI) | payer MEDICARE, MEDICAID ==
[~2020-07-01] MED LIST changes: +OXYC10TA3 PO
--- NOTE | 2020-07-01 12:30 | REP ---
INDICATION: RESTAGING BILATERAL OVARIAN CANCER C56.1, C56.2. COMPARISON: Comparison PET-CT studies are from February 05, 2020, october 30, 2019 and August 01, 2019.. TECHNIQUE: Forty-six minutes following the intravenous injection of a 8.04 mCi dose of F-18 FDG, three-dimensional PET scintigraphy is acquired from the skull base to the proximal thighs. Triplanar noncontrast CT scanning is acquired through the same anatomic range for attenuation correction, and image registration with scan parameters optimized to minimize radiation exposure to the patient. PET scintigraphy and CT datasets were fused and displayed on a workstation with multiplanar and projection display capability. FINDINGS: Multiple pleural based hypermetabolic nodular foci are again seen in the left chest in a pattern and distribution essentially unchanged from the most recent prior study of February 05, 2020. The most avid focus is again noted just posterior to the a thoracic aorta where maximum standard uptake value today is 12.42, previously 13.69. Otherwise, maximum standard uptake value in these pleural based intrathoracic foci ranges up to maximum SUV value of 6.25. This is similar to the prior study. No new focus is seen. The 2 right chest wall foci are again seen. Maximum standard uptake value in the right parasternal focus is 4.15 and that in the right para as I Arjun focus is 4.92 today. No other abnormal hypermetabolic foci is seen. No abnormal focus is observed in the abdomen or pelvis. IMPRESSION: Stable hypermetabolic foci in the left chest and right parasternal and para xiphoid region. No new focus seen. <Electronically signed by Adam Landaverde > 07/01/20 [id number]
== END ==
LOC: M PLARAD 08:35
PROVIDERS: ATTEND Internal Medicine Medical Oncology
DX: C56.1 Malignant neoplasm of right ovary (principal); C56.2 Malignant neoplasm of left ovary
CPT/HCPCS: 78815; A9552

== ENCOUNTER → 2021-08-25 | Outpatient (CLI) | payer MEDICARE, MEDICAID ==
[~2021-08-25] MED LIST changes: +CEPH500C PO; +DICL1GEL3 TOP; +GABA-282 PO; -GABA-843 PO; -LEVO500T3 PO; +LEVO500T4 PO; +OMEP40CA4 PO; -OMEP40CA97 PO; -PROC10TA4 PO; +PROC10TA5 PO; +SYMB16INH INH; +VALS1TAB66 PO
== END ==
LOC: M PLARAD 07:56
PROVIDERS: ATTEND Internal Medicine Medical Oncology
DX: C56.1 Malignant neoplasm of right ovary (principal); E27.8 Other specified disorders of adrenal gland
CPT/HCPCS: 78815; A9552

== ENCOUNTER → 2021-10-28 | Outpatient (CLI) | payer MEDICARE, MEDICAID ==
[~2021-10-28] MED LIST changes: +LIDOCAINE 1% MDV 20ML VIAL As Ordered ONE
[2021-10-28 10:01] VITALS: BP 151/67
[2021-10-28 10:16] LABS: INR 0.9; PROTHROMBIN TIME 12.6 SECONDS (12.7-14.5)
== END ==
LOC: M IRPRO 09:04
PROVIDERS: ATTEND Internal Medicine Medical Oncology
DX: C79.51 Secondary malignant neoplasm of bone (principal); C56.1 Malignant neoplasm of right ovary

== ENCOUNTER → 2021-12-16 | Outpatient (CLI) | payer MEDICARE, MEDICAID ==
[~2021-12-16] MED LIST changes: -LIDOCAINE 1% MDV 20ML VIAL As Ordered ONE
== END ==
LOC: M LABSMTC 10:06
PROVIDERS: ATTEND Anesthesiology
DX: Z01.818 Encounter for other preprocedural examination (principal); Z20.822 Contact with and (suspected) exposure to COVID-19

== ENCOUNTER 2021-12-21 07:53 | Day surgery (SDC) | payer MEDICARE, MEDICAID ==
[~2021-12-21] VITALS: Ht 170.2 cm; Wt 69.9 kg
[~2021-12-21 07:53] MED LIST changes: +NS 1,000 ML IV ONE; +propofoL 500 MG/50 ML VIAL As Ordered ONE
[2021-12-21] MEDS ORDERED: fentaNYL 100 MCG/2 ML INJECTION As Ordered ONE (11:01)
[2021-12-21 11:30] VITALS: BP 139/84
[2021-12-22] MEDS ORDERED: PROC10TA5 PO (09:24)
[2021-12-22] MEDS ORDERED: ONDA-84 PO (09:24)
== END 2021-12-21 11:42 | disposition home or self-care (01) ==
LOC: M OPP 07:53
PROVIDERS: ATTEND Internal Medicine Gastroenterology
DX: K57.30 Diverticulosis of large intestine without perforation or abscess without bleeding (principal); K64.8 Other hemorrhoids; R19.4 Change in bowel habit; K22.70 Barrett's esophagus without dysplasia; K29.70 Gastritis, unspecified, without bleeding; Z79.2 Long term (current) use of antibiotics; Z79.51 Long term (current) use of inhaled steroids; Z79.891 Long term (current) use of opiate analgesic; Z79.899 Other long term (current) drug therapy; Z88.0 Allergy status to penicillin; Z88.8 Allergy status to other drugs, medicaments and biological substances; F17.210 Nicotine dependence, cigarettes, uncomplicated; Z85.118 Personal history of other malignant neoplasm of bronchus and lung; Z85.43 Personal history of malignant neoplasm of ovary; Z92.21 Personal history of antineoplastic chemotherapy; Z92.3 Personal history of irradiation; Z86.16 Personal history of COVID-19
CPT/HCPCS: 43239; 45380; 88305; J3010

== ENCOUNTER → 2022-03-15 | Outpatient (CLI) | payer MEDICARE, MEDICAID ==
[~2022-03-15] MED LIST changes: +LEVO1TAB39 PO; -LEVO500T4 PO; -NS 1,000 ML IV ONE; +ONDA-84 PO; +ONDA8TAB8 PO; -propofoL 500 MG/50 ML VIAL As Ordered ONE
== END ==
LOC: M PLARAD 08:01
PROVIDERS: ATTEND Internal Medicine Medical Oncology
DX: C56.3 Malignant neoplasm of bilateral ovaries (principal)
CPT/HCPCS: 78815; A9552

== ENCOUNTER 2022-05-18 10:36 | Inpatient (IN) | payer MEDICARE, MEDICAID ==
[~2022-05-18] VITALS: Ht 170.2 cm; Wt 89.5 kg
[~2022-05-18 10:36] MED LIST changes: +SODIUM CHLORIDE 0.9% INJ 10 ML SYR IV SCH
[2022-05-18] MEDS ORDERED: PROMETHAZINE 25MG/ML 1ML VIAL IV ONE (12:20)
[2022-05-18] MEDS ORDERED: NS 1,000 ML IV ONE (12:20)
[2022-05-18 12:54] LABS: HEMATOCRIT 32.5 % (36.0-47.0); HEMOGLOBIN 10.3 g/dl (12.0-15.5); MEAN CORPUSCULAR HEMOGLOBIN 32.4 pg (27.0-33.0); MEAN CORPUSCULAR HGB CONC 31.7 g/dl (32.0-36.5); MEAN CORPUSCULAR VOLUME 102.2 fl (80.0-96.0); RED BLOOD COUNT 3.18 10^6/uL (4.00-5.40); WHITE BLOOD COUNT 19.5 10^3/uL (4.0-10.0)
[2022-05-18 13:33] LABS: ALBUMIN 3.9 G/DL (3.2-5.2); ALT/SGPT 15 U/L (7.0-40); BILIRUBIN,DIRECT 0.1 MG/DL (<0.4); BILIRUBIN,TOTAL 0.4 MG/DL (0.3-1.2); BLOOD UREA NITROGEN 13 MG/DL (9-23); CALCIUM LEVEL 8.6 MG/DL (8.5-10.1); CARBON DIOXIDE LEVEL 27 MMOL/L (20-31); CHLORIDE LEVEL 107 MMOL/L (98-107); CREATININE FOR GFR 0.68 MG/DL (0.55-1.30); GLOMERULAR FILTRATION RATE > 60.0 (>51); GLUCOSE, FASTING 93 MG/DL (60-100); LIPASE 21 U/L (12-53); MAGNESIUM LEVEL 1.3 MG/DL (1.8-2.4); POTASSIUM SERUM 3.7 MMOL/L (3.5-5.1); SODIUM LEVEL 143 MMOL/L (136-145); TOTAL PROTEIN 6.9 G/DL (5.7-8.2)
[2022-05-18] MEDS ORDERED: MAG SULF 1GM/100ML (MAG RUN) 1 GM in IV 1 EA IV ONE ×2 (13:40→16:45)
[2022-05-18 13:54] LABS: PLATELET COUNT, AUTOMATED 23 10^3/uL (150-450)
[2022-05-18 14:00] LABS: ANISOCYTOSIS 1+; LYMPHOCYTES 9 % (16-44); METAMYELOCYTES 1 % (0-0); MONOCYTES 5 % (0-5); NEUTROPHILS 81 % (28-66); OVALOCYTES 1+; PLATELET ESTIMATE MARKED DECREASE (NORMAL); POLYCHROMASIA 1+; TEAR DROP CELLS 1+
[2022-05-18] MEDS ORDERED: ISOVUE-370 76% 100ML VIAL As Ordered ONE (14:50)
[2022-05-18] MEDS ORDERED: VALSARTAN 80 MG TAB (DIOVAN) PO ONE (16:35)
[2022-05-18] MEDS ORDERED: hydrALAZINE 20MG/ML 1ML VIAL (J0360 PER 20MG) IV ONE (16:35)
[2022-05-18] MEDS: NS 1,000 ML IV SCH (19:50)
[2022-05-18] MEDS ORDERED: VALS1TAB67 PO (20:37)
[2022-05-18] MEDS ORDERED: ONDA8TAB8 PO (20:37)
[2022-05-18] MEDS ORDERED: HOME MED LIST COMPLETE! XX SCH (20:45)
[2022-05-18] MEDS: VALSARTAN 80 MG TAB (DIOVAN) PO SCH ×2 (21:00→21:44)
[2022-05-18] MEDS ORDERED: ALBUTEROL 90 MCG/ACT 8GM HFA INHALER INH PRN (21:05)
[2022-05-18] MEDS ORDERED: ONDANSETRON 4MG ORAL DISINTEGRATING TAB PO PRN (21:05)
[2022-05-18] MEDS ORDERED: PROCHLORPERAZINE 5MG TAB PO PRN (21:05)
[2022-05-18 21:07] LABS: HEMATOCRIT 32.7 % (36.0-47.0); HEMOGLOBIN 10.5 g/dl (12.0-15.5); LYMPH % 9.6 % (24.0-44.0); MEAN CORPUSCULAR HEMOGLOBIN 32.3 pg (27.0-33.0); MEAN CORPUSCULAR HGB CONC 32.1 g/dl (32.0-36.5); MEAN CORPUSCULAR VOLUME 100.6 fl (80.0-96.0); NEUTROPHILS % 77.1 % (36.0-66.0); RED BLOOD COUNT 3.25 10^6/uL (4.00-5.40); WHITE BLOOD COUNT 19.5 10^3/uL (4.0-10.0)
[2022-05-18 21:08] LABS: BASO # 0.1 10^3/uL (0.0-0.2); BASO % 0.7 % (0.0-1.0); EOS # 0.1 10^3/uL (0.0-0.5); EOS % 0.5 % (0.0-3.0); LYMPH # 1.9 10^3/uL (1.5-5.0); MONO # 1.2 10^3/uL (0.0-0.8); MONO % 5.9 % (2.0-8.0); PLATELET COUNT, AUTOMATED 23 10^3/uL (150-450)
[2022-05-18 21:33] LABS: RSV AMPLIFICATION NEGATIVE (NEGATIVE)
[2022-05-18] MEDS: GABAPENTIN 300 MG CAP PO SCH (21:43)
[2022-05-18] MEDS: hydrALAZINE 20MG/ML 1ML VIAL (J0360 PER 20MG) IV SCH (22:13)
[2022-05-18] MEDS: oxyCODONE 5MG TAB PO PRN (22:33)
[2022-05-18 23:00] VITALS: BP 181/97
[2022-05-18 23:18] VITALS: BP 173/93
[2022-05-19] VITALS (8 sets, daily range): BP systolic 132–188; BP diastolic 63–96
[2022-05-19] MEDS: hydrALAZINE 20MG/ML 1ML VIAL (J0360 PER 20MG) IV SCH ×5 (02:23→20:15)
[2022-05-19] MEDS: NS 1,000 ML IV SCH (04:23)
[2022-05-19 05:25] LABS: HEMATOCRIT 31.9 % (36.0-47.0); HEMOGLOBIN 10.2 g/dl (12.0-15.5); MEAN CORPUSCULAR HEMOGLOBIN 32.3 pg (27.0-33.0); MEAN CORPUSCULAR VOLUME 100.9 fl (80.0-96.0); RED BLOOD COUNT 3.16 10^6/uL (4.00-5.40)
[2022-05-19 05:28] LABS: PLATELET COUNT, AUTOMATED 27 10^3/uL (150-450)
[2022-05-19] MEDS: ACETAMINOPHEN TAB 650MG DOSE (2X325MG) PO PRN ×2 (05:47→11:51)
[2022-05-19] MEDS ORDERED: LABETALOL 100MG/20ML VIAL IV STA (06:16)
[2022-05-19 06:21] LABS: ALBUMIN 3.8 G/DL (3.2-5.2); ALT/SGPT 14 U/L (7.0-40); BILIRUBIN,TOTAL 0.5 MG/DL (0.3-1.2); BLOOD UREA NITROGEN 8 MG/DL (9-23); CALCIUM LEVEL 8.6 MG/DL (8.5-10.1); CARBON DIOXIDE LEVEL 25 MMOL/L (20-31); CHLORIDE LEVEL 108 MMOL/L (98-107); CREATININE FOR GFR 0.54 MG/DL (0.55-1.30); GLOMERULAR FILTRATION RATE > 60.0 (>51); GLUCOSE, FASTING 97 MG/DL (60-100); MAGNESIUM LEVEL 1.7 MG/DL (1.8-2.4); POTASSIUM SERUM 3.3 MMOL/L (3.5-5.1); SODIUM LEVEL 143 MMOL/L (136-145); TOTAL PROTEIN 6.4 G/DL (5.7-8.2)
[2022-05-19] MEDS ORDERED: ONDANSETRON 4MG ORAL DISINTEGRATING TAB PO PRN (07:30)
[2022-05-19] MEDS ORDERED: KCL 10MEQ/100ML SWI (KRUN) 10 MEQ in IV 1 EA IV ONE (08:00)
[2022-05-19] MEDS: OMEPRAZOLE 20MG CAP PO SCH (08:27)
[2022-05-19] MEDS: VALSARTAN 80 MG TAB (DIOVAN) PO SCH (08:27)
[2022-05-19] MEDS: GABAPENTIN 300 MG CAP PO SCH ×3 (08:27→20:25)
[2022-05-19] MEDS: SYMBICORT 160/4.5MCG INHALER 6GM INH SCH ×2 (08:59→21:15)
[2022-05-19] MEDS: oxyCODONE 5MG TAB PO PRN ×2 (09:24→16:16)
[2022-05-19] MEDS ORDERED: VANCOMYCIN HCL 750 MG, VIAL MATE ADAPTER 1 EACH in NS 250 ML IV SCH (14:55)
[2022-05-19] MEDS ORDERED: LevoFLOXacin IV 750 MG in IV 1 EA IV SCH (16:00)
[2022-05-19] MEDS ORDERED: VANCOMYCIN HCL 1,000 MG, VIAL MATE ADAPTER 1 EACH in D5W 250 ML IV ONE (17:00)
[2022-05-19] MEDS ORDERED: VANCOMYCIN HCL 750 MG, VIAL MATE ADAPTER 1 EACH in D5W 250 ML IV ONE (18:00)
[2022-05-20] VITALS: BP 149/68
[2022-05-20] MEDS ORDERED: VANCOMYCIN PO SCH
[2022-05-20] MEDS ORDERED: VANCOMYCIN HCL 750 MG, VIAL MATE ADAPTER 1 EACH in D5W 250 ML IV SCH (01:00)
[2022-05-20] MEDS ORDERED: VANCOMYCIN HCL 500 MG in D5W MINI-BAG PLUS 100 ML IV SCH (02:00)
[2022-05-20] MEDS: oxyCODONE 5MG TAB PO PRN ×2 (02:30→10:30)
[2022-05-20] MEDS: hydrALAZINE 20MG/ML 1ML VIAL (J0360 PER 20MG) IV SCH ×2 (03:00→08:19)
[2022-05-20 04:00] VITALS: BP 170/89
[2022-05-20 05:27] LABS: BASO % 0.3 % (0.0-1.0); EOS # 0.1 10^3/uL (0.0-0.5); HEMATOCRIT 29.3 % (36.0-47.0); HEMOGLOBIN 9.3 g/dl (12.0-15.5); MEAN CORPUSCULAR HEMOGLOBIN 32.9 pg (27.0-33.0); MEAN CORPUSCULAR HGB CONC 31.7 g/dl (32.0-36.5); MEAN CORPUSCULAR VOLUME 103.5 fl (80.0-96.0); MONO # 0.9 10^3/uL (0.0-0.8); NEUTROPHILS # 9.8 10^3/uL (1.5-8.5); NEUTROPHILS % 80.4 % (36.0-66.0); RED BLOOD COUNT 2.83 10^6/uL (4.00-5.40); WHITE BLOOD COUNT 12.2 10^3/uL (4.0-10.0)
[2022-05-20 05:29] LABS: PLATELET COUNT, AUTOMATED 37 10^3/uL (150-450)
[2022-05-20] MEDS ORDERED: VANCOMYCIN ORAL SOL 250MG/5ML ORAL SYRINGE PO SCH (06:00)
[2022-05-20 06:02] LABS: ALBUMIN 3.4 G/DL (3.2-5.2); ALT/SGPT 13 U/L (7.0-40); BILIRUBIN,TOTAL 0.4 MG/DL (0.3-1.2); BLOOD UREA NITROGEN 11 MG/DL (9-23); CARBON DIOXIDE LEVEL 25 MMOL/L (20-31); CHLORIDE LEVEL 109 MMOL/L (98-107); CREATININE FOR GFR 0.82 MG/DL (0.55-1.30); GLOMERULAR FILTRATION RATE > 60.0 (>51); GLUCOSE, FASTING 97 MG/DL (60-100); MAGNESIUM LEVEL 1.6 MG/DL (1.8-2.4); POTASSIUM SERUM 3.7 MMOL/L (3.5-5.1); SODIUM LEVEL 143 MMOL/L (136-145); TOTAL PROTEIN 5.7 G/DL (5.7-8.2)
[2022-05-20] MEDS: SYMBICORT 160/4.5MCG INHALER 6GM INH SCH (07:23)
[2022-05-20 08:00] VITALS: BP 128/78
[2022-05-20] MEDS ORDERED: MAGNESIUM OXIDE 400MG TAB (MAG-OX) PO ONE (08:00)
[2022-05-20] MEDS: OMEPRAZOLE 20MG CAP PO SCH (08:17)
[2022-05-20] MEDS: VALSARTAN 80 MG TAB (DIOVAN) PO SCH (08:17)
[2022-05-20] MEDS: GABAPENTIN 300 MG CAP PO SCH (08:18)
[2022-05-20 08:19] VITALS: BP 170/89
[2022-05-20] MEDS ORDERED: amLODIPine 5 MG TAB PO SCH ×2 (09:00)
[2022-05-20] MEDS ORDERED: PROBCAP14 PO (09:44)
[2022-05-20] MEDS ORDERED: FIRV50SO PO (09:44)
[2022-05-20] MEDS ORDERED: AMLO1TAB24 PO (09:44)
[2022-05-24] MEDS ORDERED: PROC10TA5 PO (17:13)
[2022-05-25] MEDS ORDERED: OXYC10TA3 PO (14:11)
== END 2022-05-20 12:36 | disposition home or self-care (01) | DRG 372 ==
LOC: M ED 10:36 → M ED INP 19:48 → M PCU 22:49
PROVIDERS: ADMIT Family Medicine; ATTEND Family Medicine
DX: A04.72 Enterocolitis due to Clostridium difficile, not specified as recurrent (principal); I16.9 Hypertensive crisis, unspecified; C56.9 Malignant neoplasm of unspecified ovary; C78.00 Secondary malignant neoplasm of unspecified lung; I10 Essential (primary) hypertension; J44.9 Chronic obstructive pulmonary disease, unspecified; F17.210 Nicotine dependence, cigarettes, uncomplicated; D72.829 Elevated white blood cell count, unspecified; E83.42 Hypomagnesemia; D69.59 Other secondary thrombocytopenia; Z88.0 Allergy status to penicillin; Z88.8 Allergy status to other drugs, medicaments and biological substances; Z79.899 Other long term (current) drug therapy; F12.90 Cannabis use, unspecified, uncomplicated; Z92.21 Personal history of antineoplastic chemotherapy

== ENCOUNTER → 2022-08-16 | Outpatient (CLI) | payer MEDICARE, MEDICAID ==
[~2022-08-16] MED LIST changes: +AMLO1TAB24 PO; +FIRV50SO PO; +PROBCAP14 PO; -SODIUM CHLORIDE 0.9% INJ 10 ML SYR IV SCH; +VALS1TAB67 PO
== END ==
LOC: M PLARAD 12:48
PROVIDERS: ATTEND Internal Medicine Medical Oncology
DX: C56.3 Malignant neoplasm of bilateral ovaries (principal); R91.8 Other nonspecific abnormal finding of lung field; R93.5 Abnormal findings on diagnostic imaging of other abdominal regions, including retroperitoneum
CPT/HCPCS: 78815; A9552

== ENCOUNTER 2022-08-29 05:16 | Emergency (ER) | payer OTHER ==
[~2022-08-29] VITALS: Ht 170.2 cm; Wt 78.1 kg
[~2022-08-29 05:16] MED LIST changes: -OXYC-403 PO; +OXYC-673 PO
[2022-08-29] MEDS ORDERED: ONDANSETRON 4MG 2ML VIAL IV ONE (06:35)
[2022-08-29] MEDS ORDERED: MORPHINE 4 MG/ML 1ML VIAL IV ONE ×2 (06:35→09:40)
[2022-08-29 06:39] LABS: HEMATOCRIT 38.6 % (36.0-47.0); HEMOGLOBIN 12.7 g/dl (12.0-15.5); MEAN CORPUSCULAR HEMOGLOBIN 31.4 pg (27.0-33.0); MEAN CORPUSCULAR HGB CONC 32.9 g/dl (32.0-36.5); MEAN CORPUSCULAR VOLUME 95.5 fl (80.0-96.0); PLATELET COUNT, AUTOMATED 103 10^3/uL (150-450); RED BLOOD COUNT 4.04 10^6/uL (4.00-5.40); WHITE BLOOD COUNT 3.3 10^3/uL (4.0-10.0)
[2022-08-29 07:04] LABS: CK-MB VALUE MASS < 1.0 NG/ML (<3.6); LIPASE 17 U/L (12-53)
[2022-08-29 07:07] LABS: ALBUMIN 3.5 G/DL (3.2-5.2); ALKALINE PHOSPHATASE 79 U/L (46-116); ALT/SGPT 46 U/L (7.0-40); AST/SGOT 20 U/L (<34); BILIRUBIN,DIRECT 0.1 MG/DL (<0.4); BILIRUBIN,TOTAL 0.3 MG/DL (0.3-1.2); BLOOD UREA NITROGEN 25 MG/DL (9-23); CALCIUM LEVEL 8.4 MG/DL (8.5-10.1); CARBON DIOXIDE LEVEL 31 MMOL/L (20-31); CHLORIDE LEVEL 107 MMOL/L (98-107); CPK CREATINE PHOSPHOKINASE 23 U/L (34-145); CREATININE FOR GFR 0.84 MG/DL (0.55-1.30); GLOMERULAR FILTRATION RATE > 60.0 (>51); GLUCOSE, FASTING 127 MG/DL (60-100); MB/CK RELATIVE INDEX 4.34 (< OR =4); POTASSIUM SERUM 4.2 MMOL/L (3.5-5.1); SODIUM LEVEL 143 MMOL/L (136-145); TOTAL PROTEIN 6.1 G/DL (5.7-8.2)
[2022-08-29 07:09] LABS: FREE T4 1.17 NG/DL (0.89-1.76); THYROID STIMULATING HORMONE 2.489 uIU/ML (0.55-4.78)
[2022-08-29 07:21] LABS: ATYPICAL LYMPH 7 % (0-5); EOSINOPHILS 7 % (0-3); LYMPHOCYTES 40 % (16-44); NEUTROPHILS 46 % (28-66)
[2022-08-29 07:22] LABS: ANISOCYTOSIS 1+; PLATELET ESTIMATE DECREASED (NORMAL)
[2022-08-29] MEDS ORDERED: ISOVUE-370 76% 100ML VIAL As Ordered ONE (07:38)
[2022-08-29 08:11] LABS: CK-MB VALUE MASS < 1.0 NG/ML (<3.6)
[2022-08-29 08:13] LABS: CPK CREATINE PHOSPHOKINASE 24 U/L (34-145); MB/CK RELATIVE INDEX 4.16 (< OR =4)
[2022-08-29 10:01] LABS: MB/CK RELATIVE INDEX 3.22 (< OR =4)
[2022-08-29] MEDS ORDERED: LIDO5DIS41 TOP (10:43)
[2022-08-29 10:45] VITALS: BP 168/84
[2022-09-10] MEDS ORDERED: OXYC10TA3 PO (09:18)
[2022-10-06] MEDS ORDERED: OXYC10TA3 PO (12:47)
== END 2022-08-29 11:15 | disposition home or self-care (01) ==
LOC: M ED 05:16
DX: R09.1 Pleurisy (principal); S23.3XXA Sprain of ligaments of thoracic spine, initial encounter; C79.9 Secondary malignant neoplasm of unspecified site; I10 Essential (primary) hypertension; K21.9 Gastro-esophageal reflux disease without esophagitis; F32.9 Major depressive disorder, single episode, unspecified; K76.0 Fatty (change of) liver, not elsewhere classified; J44.9 Chronic obstructive pulmonary disease, unspecified; Z87.09 Personal history of other diseases of the respiratory system; Z85.43 Personal history of malignant neoplasm of ovary; Z85.118 Personal history of other malignant neoplasm of bronchus and lung; Z85.05 Personal history of malignant neoplasm of liver; Z92.3 Personal history of irradiation; Z86.19 Personal history of other infectious and parasitic diseases; F17.200 Nicotine dependence, unspecified, uncomplicated; F12.10 Cannabis abuse, uncomplicated; Z79.899 Other long term (current) drug therapy; Z88.0 Allergy status to penicillin; Z88.8 Allergy status to other drugs, medicaments and biological substances
CPT/HCPCS: 71045; 71275; 80048; 80076; 82550; 82553; 83690; 83880; 84439; 84443; 84484; 85025; 93005; 93041; 94760; 96374; 96375; 96376; 99285; J2405; Q9967

== ENCOUNTER → 2022-10-12 | Outpatient (CLI) | payer OTHER ==
[~2022-10-12] VITALS: Ht 170.2 cm; Wt 79.3 kg
[~2022-10-12] MED LIST changes: +LIDO5DIS41 TOP
[2022-10-12 13:15] VITALS: BP 156/84
== END ==
LOC: M PAL 07:30
PROVIDERS: ATTEND Nurse Practitioner Adult Health
DX: C56.1 Malignant neoplasm of right ovary (principal); C56.2 Malignant neoplasm of left ovary; Z51.5 Encounter for palliative care; Z90.710 Acquired absence of both cervix and uterus; Z92.21 Personal history of antineoplastic chemotherapy; Z92.3 Personal history of irradiation; C78.02 Secondary malignant neoplasm of left lung; C78.2 Secondary malignant neoplasm of pleura; D70.9 Neutropenia, unspecified; G89.3 Neoplasm related pain (acute) (chronic); M25.559 Pain in unspecified hip; M54.50 Low back pain, unspecified; J44.9 Chronic obstructive pulmonary disease, unspecified; F17.210 Nicotine dependence, cigarettes, uncomplicated

== ENCOUNTER → 2022-11-23 | Outpatient (CLI) | payer OTHER ==
[~2022-11-23] VITALS: Ht 167.6 cm; Wt 78.7 kg
[~2022-11-23] MED LIST changes: +GABA600T4 PO; +NARC1SPR NARES
[2022-11-23 08:54] VITALS: BP 119/74
== END ==
LOC: M PAL 08:46
PROVIDERS: ATTEND Nurse Practitioner Adult Health
DX: C56.9 Malignant neoplasm of unspecified ovary (principal); C79.51 Secondary malignant neoplasm of bone; Z85.118 Personal history of other malignant neoplasm of bronchus and lung; Z92.21 Personal history of antineoplastic chemotherapy; Z92.3 Personal history of irradiation; Z51.5 Encounter for palliative care; G89.3 Neoplasm related pain (acute) (chronic); Z79.891 Long term (current) use of opiate analgesic; M71.551 Other bursitis, not elsewhere classified, right hip; M71.552 Other bursitis, not elsewhere classified, left hip; M25.511 Pain in right shoulder; M54.59 Other low back pain; G62.9 Polyneuropathy, unspecified; R63.0 Anorexia; Z88.8 Allergy status to other drugs, medicaments and biological substances; F17.210 Nicotine dependence, cigarettes, uncomplicated; Z90.49 Acquired absence of other specified parts of digestive tract; Z88.0 Allergy status to penicillin; Z79.899 Other long term (current) drug therapy; Z90.710 Acquired absence of both cervix and uterus; Z90.722 Acquired absence of ovaries, bilateral

== ENCOUNTER → 2022-12-20 | Outpatient (CLI) | payer OTHER, MEDICAID ==
[~2022-12-20] MED LIST changes: +GASTROGRAFIN SOLUTION 30ML As Ordered ONE; +ISOVUE-370 76% 100ML VIAL As Ordered ONE
== END ==
LOC: M RAD 12:24
PROVIDERS: ATTEND Internal Medicine Medical Oncology
DX: C56.9 Malignant neoplasm of unspecified ovary (principal); R16.0 Hepatomegaly, not elsewhere classified; K76.0 Fatty (change of) liver, not elsewhere classified; K57.90 Diverticulosis of intestine, part unspecified, without perforation or abscess without bleeding; Z90.710 Acquired absence of both cervix and uterus; R91.8 Other nonspecific abnormal finding of lung field; I70.0 Atherosclerosis of aorta; I25.10 Atherosclerotic heart disease of native coronary artery without angina pectoris; Z95.828 Presence of other vascular implants and grafts
CPT/HCPCS: 71260; 74177; Q9963; Q9967

== ENCOUNTER → 2023-01-26 | Outpatient (CLI) | payer OTHER ==
[~2023-01-26] VITALS: Ht 167.6 cm; Wt 79.8 kg
[~2023-01-26] MED LIST changes: +DICL100G10 TOP; -DICL1GEL3 TOP; -GASTROGRAFIN SOLUTION 30ML As Ordered ONE; -ISOVUE-370 76% 100ML VIAL As Ordered ONE
[2023-01-26 09:05] VITALS: BP 116/78; TEMP 97; O2SAT 95
== END ==
LOC: M PAL 08:34
PROVIDERS: ATTEND Nurse Practitioner Adult Health
DX: C56.9 Malignant neoplasm of unspecified ovary (principal); C79.51 Secondary malignant neoplasm of bone; G89.3 Neoplasm related pain (acute) (chronic); F17.210 Nicotine dependence, cigarettes, uncomplicated; Z79.891 Long term (current) use of opiate analgesic; M71.551 Other bursitis, not elsewhere classified, right hip; M71.552 Other bursitis, not elsewhere classified, left hip; M25.511 Pain in right shoulder; M54.59 Other low back pain; G62.9 Polyneuropathy, unspecified; R63.0 Anorexia; Z92.3 Personal history of irradiation; Z92.21 Personal history of antineoplastic chemotherapy; Z85.118 Personal history of other malignant neoplasm of bronchus and lung; Z88.8 Allergy status to other drugs, medicaments and biological substances; Z51.5 Encounter for palliative care; Z90.49 Acquired absence of other specified parts of digestive tract; Z88.0 Allergy status to penicillin; Z79.899 Other long term (current) drug therapy; Z90.710 Acquired absence of both cervix and uterus; Z90.722 Acquired absence of ovaries, bilateral

== ENCOUNTER → 2023-03-09 | Outpatient (CLI) | payer OTHER ==
[~2023-03-09] VITALS: Ht 170.2 cm; Wt 77.6 kg
[~2023-03-09] MED LIST changes: +AMOX500C PO
[2023-03-09 09:30] VITALS: BP 121/79; O2SAT 95
== END ==
LOC: M PAL 07:50
PROVIDERS: ATTEND Nurse Practitioner Adult Health
DX: C56.9 Malignant neoplasm of unspecified ovary (principal); C79.51 Secondary malignant neoplasm of bone; G89.3 Neoplasm related pain (acute) (chronic); M71.551 Other bursitis, not elsewhere classified, right hip; M71.552 Other bursitis, not elsewhere classified, left hip; K57.90 Diverticulosis of intestine, part unspecified, without perforation or abscess without bleeding; R63.0 Anorexia; Z51.5 Encounter for palliative care; F17.210 Nicotine dependence, cigarettes, uncomplicated; Z79.51 Long term (current) use of inhaled steroids; Z79.891 Long term (current) use of opiate analgesic; Z79.899 Other long term (current) drug therapy; Z88.8 Allergy status to other drugs, medicaments and biological substances; Z90.49 Acquired absence of other specified parts of digestive tract; Z90.710 Acquired absence of both cervix and uterus; Z90.722 Acquired absence of ovaries, bilateral; Z88.0 Allergy status to penicillin; Z85.118 Personal history of other malignant neoplasm of bronchus and lung; Z92.21 Personal history of antineoplastic chemotherapy; Z92.3 Personal history of irradiation; Z66 Do not resuscitate

== ENCOUNTER → 2023-03-15 | Outpatient (CLI) | payer OTHER ==
[~2023-03-15] MED LIST changes: +BACT800T5 PO
== END ==
LOC: M ONCM 07:26
PROVIDERS: ATTEND Dietitian, Registered
DX: Z53.8 Procedure and treatment not carried out for other reasons (principal)

== ENCOUNTER → 2023-03-18 | Outpatient (REF) | payer OTHER ==
[2023-03-18 11:25] LABS: URINE TOTAL PROTEIN 62.8 MG/DL (0-14)
[2023-03-18 15:25] LABS: TOTAL PROTEIN 24 HOUR URINE 94.2 MG/24HR (50-80)
== END ==
LOC: M LAB REF 09:56
PROVIDERS: ATTEND Internal Medicine Medical Oncology
DX: C79.60 Secondary malignant neoplasm of unspecified ovary (principal)

== ENCOUNTER → 2023-05-05 | Outpatient (REF) | payer OTHER, MEDICAID ==
[2023-05-05 10:20] LABS: TOTAL PROTEIN 24 HOUR URINE 353.4 MG/24HR (50-80); URINE TOTAL PROTEIN 58.9 MG/DL (0-14)
== END ==
LOC: M LAB REF 09:27
PROVIDERS: ATTEND Internal Medicine Medical Oncology
DX: C56.9 Malignant neoplasm of unspecified ovary (principal)

== ENCOUNTER → 2023-06-01 | Outpatient (CLI) | payer OTHER, MEDICAID | LOC: M PAL 08:05 | PROVIDERS: ATTEND Nurse Practitioner Family | DX: C56.9 Malignant neoplasm of unspecified ovary (principal); G89.3 Neoplasm related pain (acute) (chronic); F17.210 Nicotine dependence, cigarettes, uncomplicated; R63.0 Anorexia; Z51.5 Encounter for palliative care; Z79.51 Long term (current) use of inhaled steroids; Z79.891 Long term (current) use of opiate analgesic; Z79.899 Other long term (current) drug therapy; Z90.49 Acquired absence of other specified parts of digestive tract; Z88.0 Allergy status to penicillin; Z88.8 Allergy status to other drugs, medicaments and biological substances; Z92.21 Personal history of antineoplastic chemotherapy; Z66 Do not resuscitate ==

== ENCOUNTER → 2023-06-13 | Outpatient (CLI) | payer OTHER, MEDICAID | LOC: M PLARAD 10:20 | PROVIDERS: ATTEND Internal Medicine Medical Oncology | DX: C56.9 Malignant neoplasm of unspecified ovary (principal); Z92.21 Personal history of antineoplastic chemotherapy; Z92.3 Personal history of irradiation; C79.51 Secondary malignant neoplasm of bone | CPT/HCPCS: 78815; A9552 ==

== ENCOUNTER → 2023-06-30 | Outpatient (REF) | payer OTHER, MEDICAID | LOC: M LAB REF 18:12 | PROVIDERS: ATTEND Surgery | DX: L72.0 Epidermal cyst (principal) ==

== ENCOUNTER → 2023-07-14 | Outpatient (CLI) | payer OTHER, MEDICAID ==
[~2023-07-14] VITALS: Ht 170.2 cm; Wt 76.2 kg
[2023-07-14 10:02] VITALS: BP 130/82; O2SAT 96
== END ==
LOC: M PAL 10:05
PROVIDERS: ATTEND Nurse Practitioner Adult Health
DX: G89.3 Neoplasm related pain (acute) (chronic) (principal); G89.29 Other chronic pain; C56.9 Malignant neoplasm of unspecified ovary; K57.90 Diverticulosis of intestine, part unspecified, without perforation or abscess without bleeding; R10.9 Unspecified abdominal pain; R14.0 Abdominal distension (gaseous); R19.7 Diarrhea, unspecified; R63.0 Anorexia; F17.210 Nicotine dependence, cigarettes, uncomplicated; Z51.5 Encounter for palliative care; Z66 Do not resuscitate; Z79.51 Long term (current) use of inhaled steroids; Z79.891 Long term (current) use of opiate analgesic; Z79.899 Other long term (current) drug therapy; Z86.19 Personal history of other infectious and parasitic diseases; Z88.0 Allergy status to penicillin; Z88.1 Allergy status to other antibiotic agents; Z88.8 Allergy status to other drugs, medicaments and biological substances; Z90.49 Acquired absence of other specified parts of digestive tract; Z92.21 Personal history of antineoplastic chemotherapy

== ENCOUNTER → 2023-07-23 | Outpatient (REF) | payer OTHER, MEDICAID | LOC: M LAB REF 09:38 | PROVIDERS: ATTEND Internal Medicine Medical Oncology | DX: C56.1 Malignant neoplasm of right ovary (principal); R19.7 Diarrhea, unspecified; R10.30 Lower abdominal pain, unspecified ==

== ENCOUNTER → 2023-09-13 | Outpatient (CLI) | payer OTHER, MEDICAID ==
[~2023-09-13] VITALS: Ht 167.6 cm; Wt 72.2 kg
[~2023-09-13] MED LIST changes: +COLON HEALTH; +GLYC2TAB18 PO
[2023-09-13 08:29] VITALS: BP 120/73; O2SAT 95
== END ==
LOC: M PAL 08:20
PROVIDERS: ATTEND Nurse Practitioner Adult Health
DX: G89.3 Neoplasm related pain (acute) (chronic) (principal); G89.29 Other chronic pain; C56.9 Malignant neoplasm of unspecified ovary; R10.9 Unspecified abdominal pain; K57.90 Diverticulosis of intestine, part unspecified, without perforation or abscess without bleeding; R14.0 Abdominal distension (gaseous); R63.0 Anorexia; F17.210 Nicotine dependence, cigarettes, uncomplicated; Z51.5 Encounter for palliative care; Z66 Do not resuscitate; Z79.51 Long term (current) use of inhaled steroids; Z79.891 Long term (current) use of opiate analgesic; Z79.899 Other long term (current) drug therapy; Z86.19 Personal history of other infectious and parasitic diseases; Z88.0 Allergy status to penicillin; Z88.1 Allergy status to other antibiotic agents; Z88.8 Allergy status to other drugs, medicaments and biological substances; Z90.49 Acquired absence of other specified parts of digestive tract; Z92.21 Personal history of antineoplastic chemotherapy

== ENCOUNTER → 2023-10-11 | Outpatient (CLI) | payer OTHER, MEDICAID ==
[~2023-10-11] VITALS: Ht 170.2 cm; Wt 70.2 kg
[2023-10-11 09:24] VITALS: BP 122/79; O2SAT 96
== END ==
LOC: M PAL 08:48
PROVIDERS: ATTEND Nurse Practitioner Adult Health
DX: C56.9 Malignant neoplasm of unspecified ovary (principal); G89.3 Neoplasm related pain (acute) (chronic); F17.210 Nicotine dependence, cigarettes, uncomplicated; Z79.899 Other long term (current) drug therapy; Z79.51 Long term (current) use of inhaled steroids; Z88.0 Allergy status to penicillin; Z88.8 Allergy status to other drugs, medicaments and biological substances

== ENCOUNTER → 2023-11-10 | Outpatient (CLI) | payer OTHER, MEDICAID ==
[~2023-11-10] MED LIST changes: +CEPH500C; +MAGN400T35; +METR-265; +MS C15TA8 PO
== END ==
LOC: M PAL 07:56
PROVIDERS: ATTEND Nurse Practitioner Family
DX: G89.29 Other chronic pain (principal); G89.3 Neoplasm related pain (acute) (chronic); C56.9 Malignant neoplasm of unspecified ovary; K90.9 Intestinal malabsorption, unspecified; Z51.5 Encounter for palliative care; R10.84 Generalized abdominal pain; F41.9 Anxiety disorder, unspecified; K55.059 Acute (reversible) ischemia of intestine, part and extent unspecified; Z66 Do not resuscitate; R07.89 Other chest pain; F17.210 Nicotine dependence, cigarettes, uncomplicated; Z90.49 Acquired absence of other specified parts of digestive tract; Z88.0 Allergy status to penicillin; Z88.1 Allergy status to other antibiotic agents; Z88.8 Allergy status to other drugs, medicaments and biological substances; Z79.51 Long term (current) use of inhaled steroids; Z79.899 Other long term (current) drug therapy; Z79.891 Long term (current) use of opiate analgesic

== ENCOUNTER → 2023-12-13 | Outpatient (CLI) | payer OTHER, MEDICAID ==
[~2023-12-13] MED LIST changes: +ASPI81TA26 PO; +CLOP75TA2 PO; +MAGN400T35 PO; +ONDA-284 PO; -ONDA8TAB8 PO; +PANT40TA29 PO
[2023-12-13 08:51] VITALS: BP 130/81; O2SAT 95
== END ==
LOC: M PAL 08:07
PROVIDERS: ATTEND Nurse Practitioner Adult Health
DX: G89.3 Neoplasm related pain (acute) (chronic) (principal); C56.9 Malignant neoplasm of unspecified ovary; R10.84 Generalized abdominal pain; K59.00 Constipation, unspecified; Z51.5 Encounter for palliative care; F17.210 Nicotine dependence, cigarettes, uncomplicated; Z92.21 Personal history of antineoplastic chemotherapy; Z79.891 Long term (current) use of opiate analgesic; Z79.82 Long term (current) use of aspirin; Z79.02 Long term (current) use of antithrombotics/antiplatelets; Z79.51 Long term (current) use of inhaled steroids; Z79.899 Other long term (current) drug therapy; Z88.0 Allergy status to penicillin; Z88.1 Allergy status to other antibiotic agents; Z88.2 Allergy status to sulfonamides; Z90.49 Acquired absence of other specified parts of digestive tract

== ENCOUNTER 2024-01-13 15:32 | Emergency (ER) | payer OTHER, MEDICAID ==
[~2024-01-13 15:32] MED LIST changes: +ISOVUE-370 76% 100ML VIAL As Ordered ONE
[2024-01-13] MEDS ORDERED: CEPH500C PO (16:17)
[2024-01-13] MEDS ORDERED: CEPHALEXIN 500 MG CAP As Ordered ONE (16:20)
[2024-01-13] MEDS: CEPHALEXIN 500 MG CAP PO ONE (16:20)
[2024-01-13 19:01] LABS: HEMOGLOBIN 15.2 g/dl (12.0-15.5); MEAN CORPUSCULAR HEMOGLOBIN 33.1 pg (27.0-33.0); MEAN CORPUSCULAR HGB CONC 33.8 g/dl (32.0-36.5); PLATELET COUNT, AUTOMATED 175 10^3/uL (150-450); RED BLOOD COUNT 4.59 10^6/uL (4.00-5.40); WHITE BLOOD COUNT 4.1 10^3/uL (4.0-10.0)
[2024-01-13 19:02] LABS: NEUTROPHILS 45 % (28-66)
[2024-01-13 19:03] LABS: ATYPICAL LYMPH 7 % (0-5); BASOPHILS 2 % (0-1); EOSINOPHILS 3 % (0-3); ERYTHROCYTE SEDIMENTATION RATE 19 mm/hr (0-30); LYMPHOCYTES 36 % (16-44); MONOCYTES 5 % (0-5); PLATELET ESTIMATE NORMAL (NORMAL)
[2024-01-13 19:04] LABS: INR 0.98; PROTHROMBIN TIME 12.7 SECONDS (12.5-14.5)
[2024-01-13 19:28] LABS: ALBUMIN 4.1 G/DL (3.2-5.2); ALKALINE PHOSPHATASE 113 U/L (46-116); ALT/SGPT 53 U/L (7.0-40); AST/SGOT 36 U/L (<34); BILIRUBIN,DIRECT 0.2 MG/DL (<0.4); BILIRUBIN,TOTAL 0.6 MG/DL (0.3-1.2); BLOOD UREA NITROGEN 12 MG/DL (9-23); CALCIUM LEVEL 9.5 MG/DL (8.3-10.6); CARBON DIOXIDE LEVEL 30 MMOL/L (20-31); CHLORIDE LEVEL 108 MMOL/L (98-107); GLOMERULAR FILTRATION RATE > 60.0 (>45); GLUCOSE, FASTING 86 MG/DL (74-106); POTASSIUM SERUM 4.1 MMOL/L (3.5-5.1); SODIUM LEVEL 142 MMOL/L (136-145); TOTAL PROTEIN 7.4 G/DL (5.7-8.2)
== END 2024-01-13 16:23 | disposition home or self-care (01) ==
LOC: M ED 15:32
DX: L03.313 Cellulitis of chest wall (principal); I10 Essential (primary) hypertension; F17.200 Nicotine dependence, unspecified, uncomplicated; F12.10 Cannabis abuse, uncomplicated; Z88.0 Allergy status to penicillin; Z88.8 Allergy status to other drugs, medicaments and biological substances; Z86.19 Personal history of other infectious and parasitic diseases; Z79.52 Long term (current) use of systemic steroids; Z79.899 Other long term (current) drug therapy; Z79.82 Long term (current) use of aspirin
CPT/HCPCS: 36415; 71260; 80048; 80076; 83605; 85025; 85610; 85652; 85730; 86140; 87040; 99281; Q9967

== ENCOUNTER 2024-02-10 23:22 | Emergency (ER) | payer OTHER, MEDICAID ==
[~2024-02-10] VITALS: Ht 170.2 cm; Wt 77.3 kg
[~2024-02-10 23:22] MED LIST changes: +GABA-1490 PO; -GABA600T4 PO; -ISOVUE-370 76% 100ML VIAL As Ordered ONE
[2024-02-10 23:23] VITALS: BP 146/83; TEMP 98.7; O2SAT 96
[2024-02-11] MEDS ORDERED: CEPH500C PO (00:37)
[2024-02-11] MEDS: CEPHALEXIN 500 MG CAP PO ONE (00:46)
[2024-02-13] MEDS ORDERED: MAGN400T35 PO (15:58)
[2024-02-14] MEDS ORDERED: CEPH500C PO (08:57)
[2024-02-15] MEDS ORDERED: DOXY100C82 PO (07:23)
[2024-02-20] MEDS ORDERED: MAGN400T35 PO (14:45)
[2024-02-21] MEDS ORDERED: DOXY-440 PO (10:16)
[2024-02-21] MEDS ORDERED: MAGN400T35 PO (10:56)
== END 2024-02-11 00:55 | disposition home or self-care (01) ==
LOC: M ED 23:22
DX: R22.2 Localized swelling, mass and lump, trunk (principal); F17.200 Nicotine dependence, unspecified, uncomplicated; K76.0 Fatty (change of) liver, not elsewhere classified; K22.70 Barrett's esophagus without dysplasia; C79.60 Secondary malignant neoplasm of unspecified ovary; F32.A Depression, unspecified; Z79.52 Long term (current) use of systemic steroids; Z79.82 Long term (current) use of aspirin; Z79.83 Long term (current) use of bisphosphonates; Z79.899 Other long term (current) drug therapy; Z88.0 Allergy status to penicillin; Z88.8 Allergy status to other drugs, medicaments and biological substances

== ENCOUNTER → 2024-02-14 | Outpatient (CLI) | payer OTHER, MEDICAID ==
[~2024-02-14] MED LIST changes: +DOXY-440 PO; +DOXY100C82 PO
== END ==
LOC: M PAL 09:07
PROVIDERS: ATTEND Nurse Practitioner Adult Health
DX: G89.3 Neoplasm related pain (acute) (chronic) (principal); G89.29 Other chronic pain; S21.109A Unspecified open wound of unspecified front wall of thorax without penetration into thoracic cavity, initial encounter; C56.9 Malignant neoplasm of unspecified ovary; Z51.5 Encounter for palliative care; F17.210 Nicotine dependence, cigarettes, uncomplicated; Z92.21 Personal history of antineoplastic chemotherapy; Z79.891 Long term (current) use of opiate analgesic; Z79.82 Long term (current) use of aspirin; Z79.02 Long term (current) use of antithrombotics/antiplatelets; Z79.51 Long term (current) use of inhaled steroids; Z79.899 Other long term (current) drug therapy; Z88.0 Allergy status to penicillin; Z88.1 Allergy status to other antibiotic agents; Z88.8 Allergy status to other drugs, medicaments and biological substances; Z90.49 Acquired absence of other specified parts of digestive tract; Z91.048 Other nonmedicinal substance allergy status

== ENCOUNTER → 2024-02-23 | Outpatient (CLI) | payer OTHER, MEDICAID ==
[~2024-02-23] VITALS: Ht 170.2 cm; Wt 77.7 kg
[~2024-02-23] MED LIST changes: -GABA-1490 PO; +GABA600T4 PO; +LIDOCAINE 1% MDV 20ML VIAL As Ordered ONE; +MIDAZOLAM INJ 2MG/2ML VIAL As Ordered ONE; +NS 1,000 ML IV SCH; +VANCOMYCIN HCL 1,000 MG, VIAL MATE ADAPTER 1 EACH in NS 250 ML IV ONE; +ceFAZolin 2 GM/D5W 50 ML IV BAG As Ordered ONE; +ceFAZolin SOD 2 GM in IV 1 EA IV ONE; +fentaNYL 100 MCG/2 ML INJECTION As Ordered ONE
[2024-02-23 09:10] VITALS: TEMP 98
[2024-02-23 11:30] VITALS: BP 140/78; O2SAT 97
== END ==
LOC: M IRPRO 08:04
PROVIDERS: ATTEND Internal Medicine Medical Oncology
DX: R42 Dizziness and giddiness (principal); C56.9 Malignant neoplasm of unspecified ovary
CPT/HCPCS: 36590; 87071; 87205; 99152; 99153; J0690; J2250; J3010

== ENCOUNTER → 2024-03-19 | Outpatient (CLI) | payer OTHER, MEDICAID ==
[~2024-03-19] VITALS: Ht 170.2 cm; Wt 78.7 kg
[~2024-03-19] MED LIST changes: +GABA-1172 PO; +GABA-1490 PO; -GABA-282 PO; -GABA600T4 PO; -LIDOCAINE 1% MDV 20ML VIAL As Ordered ONE; -MIDAZOLAM INJ 2MG/2ML VIAL As Ordered ONE; -NS 1,000 ML IV SCH; -VANCOMYCIN HCL 1,000 MG, VIAL MATE ADAPTER 1 EACH in NS 250 ML IV ONE; -ceFAZolin 2 GM/D5W 50 ML IV BAG As Ordered ONE; -ceFAZolin SOD 2 GM in IV 1 EA IV ONE; -fentaNYL 100 MCG/2 ML INJECTION As Ordered ONE
[2024-03-19 09:16] VITALS: BP 150/88; O2SAT 95
== END ==
LOC: M PAL 08:21
PROVIDERS: ATTEND Nurse Practitioner Adult Health
DX: G89.3 Neoplasm related pain (acute) (chronic) (principal); G89.29 Other chronic pain; S21.109A Unspecified open wound of unspecified front wall of thorax without penetration into thoracic cavity, initial encounter; C56.9 Malignant neoplasm of unspecified ovary; R51.9 Headache, unspecified; M25.551 Pain in right hip; M25.552 Pain in left hip; Z51.5 Encounter for palliative care; F17.210 Nicotine dependence, cigarettes, uncomplicated; Z92.21 Personal history of antineoplastic chemotherapy; Z79.891 Long term (current) use of opiate analgesic; Z79.82 Long term (current) use of aspirin; Z79.02 Long term (current) use of antithrombotics/antiplatelets; Z79.51 Long term (current) use of inhaled steroids; Z79.899 Other long term (current) drug therapy; Z88.0 Allergy status to penicillin; Z88.1 Allergy status to other antibiotic agents; Z88.8 Allergy status to other drugs, medicaments and biological substances; Z90.49 Acquired absence of other specified parts of digestive tract; Z91.048 Other nonmedicinal substance allergy status

== ENCOUNTER → 2024-03-27 | Outpatient (CLI) | payer OTHER, MEDICAID ==
[~2024-03-27] MED LIST changes: -GABA-1172 PO; +GABA-282 PO
== END ==
LOC: M PLARAD 07:32
PROVIDERS: ATTEND Internal Medicine Medical Oncology
DX: C56.1 Malignant neoplasm of right ovary (principal)
CPT/HCPCS: 78815; A9552

== ENCOUNTER → 2024-05-17 | Outpatient (CLI) | payer OTHER, MEDICAID ==
[~2024-05-17] VITALS: Ht 170.2 cm; Wt 82.5 kg
[~2024-05-17] MED LIST changes: +GABA-1172 PO; -GABA-282 PO; -NEOM1SOL13; +NEOM1SOL21
[2024-05-17 09:24] VITALS: BP 118/75; O2SAT 94
== END ==
LOC: M PAL 09:06
PROVIDERS: ATTEND Nurse Practitioner Adult Health
DX: G89.3 Neoplasm related pain (acute) (chronic) (principal); G89.29 Other chronic pain; S21.109A Unspecified open wound of unspecified front wall of thorax without penetration into thoracic cavity, initial encounter; C56.9 Malignant neoplasm of unspecified ovary; R51.9 Headache, unspecified; M25.551 Pain in right hip; M25.552 Pain in left hip; Z51.5 Encounter for palliative care; F17.210 Nicotine dependence, cigarettes, uncomplicated; Z92.21 Personal history of antineoplastic chemotherapy; Z79.51 Long term (current) use of inhaled steroids; Z79.82 Long term (current) use of aspirin; Z79.891 Long term (current) use of opiate analgesic; Z79.899 Other long term (current) drug therapy; Z88.0 Allergy status to penicillin; Z88.1 Allergy status to other antibiotic agents; Z88.8 Allergy status to other drugs, medicaments and biological substances; Z90.49 Acquired absence of other specified parts of digestive tract; Z91.048 Other nonmedicinal substance allergy status

== ENCOUNTER → 2024-07-04 | Outpatient (CLI) | payer OTHER, MEDICAID ==
[~2024-07-04] VITALS: Ht 170.2 cm; Wt 83.4 kg
[~2024-07-04] MED LIST changes: +MORP30TASA PO
[2024-07-04 14:39] VITALS: BP 136/79; O2SAT 94
== END ==
LOC: M PAL 13:04
PROVIDERS: ATTEND Family Medicine
DX: Z51.5 Encounter for palliative care (principal); R52 Pain, unspecified; C56.9 Malignant neoplasm of unspecified ovary; S21.109A Unspecified open wound of unspecified front wall of thorax without penetration into thoracic cavity, initial encounter; Z66 Do not resuscitate; Z92.3 Personal history of irradiation; Z92.21 Personal history of antineoplastic chemotherapy; Z79.891 Long term (current) use of opiate analgesic; Z79.82 Long term (current) use of aspirin; Z79.899 Other long term (current) drug therapy; Z88.0 Allergy status to penicillin; Z88.1 Allergy status to other antibiotic agents; Z88.8 Allergy status to other drugs, medicaments and biological substances

== ENCOUNTER → 2024-09-05 | Outpatient (CLI) | payer OTHER, MEDICAID ==
[~2024-09-05] VITALS: Ht 170.2 cm; Wt 83.5 kg
[~2024-09-05] MED LIST changes: +CORTOTSO; +DOXY-442 PO; -DOXY100C82 PO; -NEOM1SOL21
[2024-09-05 13:06] VITALS: BP 140/73; O2SAT 94
[2024-09-05 13:11] VITALS: BP 140/73; O2SAT 94
[2024-09-05 13:14] VITALS: BP 140/73; O2SAT 94
== END ==
LOC: M PAL 12:48
PROVIDERS: ATTEND Physician Assistant
DX: C56.9 Malignant neoplasm of unspecified ovary (principal); S21.109A Unspecified open wound of unspecified front wall of thorax without penetration into thoracic cavity, initial encounter; Z79.891 Long term (current) use of opiate analgesic; Z79.899 Other long term (current) drug therapy; Z66 Do not resuscitate; Z88.0 Allergy status to penicillin; Z88.8 Allergy status to other drugs, medicaments and biological substances

== ENCOUNTER → 2024-10-02 | Outpatient (CLI) | payer OTHER, MEDICAID | LOC: M PLARAD 07:47 | PROVIDERS: ATTEND Obstetrics & Gynecology | DX: C56.1 Malignant neoplasm of right ovary (principal) | CPT/HCPCS: 78815; A9552 ==

== ENCOUNTER 2024-10-11 11:53 | Emergency (ER) | payer OTHER, MEDICAID ==
[~2024-10-11] VITALS: Ht 170.2 cm; Wt 84.1 kg
[2024-10-11 14:08] LABS: BASO # 0.1 10^3/uL (0.0-0.2); BASO % 0.8 % (0.0-1.0); EOS # 0.1 10^3/uL (0.0-0.5); EOS % 1.7 % (0.0-3.0); HEMATOCRIT 45.1 % (36.0-47.0); HEMOGLOBIN 15.6 g/dl (12.0-15.5); LYMPH # 1.3 10^3/uL (1.5-5.0); LYMPH % 19.7 % (24.0-44.0); MEAN CORPUSCULAR HEMOGLOBIN 33.1 pg (27.0-33.0); MEAN CORPUSCULAR HGB CONC 34.6 g/dl (32.0-36.5); MEAN CORPUSCULAR VOLUME 95.6 fl (80.0-96.0); MONO # 0.5 10^3/uL (0.0-0.8); MONO % 7.7 % (2.0-8.0); NEUTROPHILS # 4.6 10^3/uL (1.5-8.5); NEUTROPHILS % 69.8 % (36.0-66.0); PLATELET COUNT, AUTOMATED 214 10^3/uL (150-450); RED BLOOD COUNT 4.72 10^6/uL (4.00-5.40); WHITE BLOOD COUNT 6.6 10^3/uL (4.0-10.0)
[2024-10-11 14:17] LABS: BLOOD UREA NITROGEN 20 MG/DL (9-23); CARBON DIOXIDE LEVEL 28 MMOL/L (20-31); CHLORIDE LEVEL 104 MMOL/L (98-107); CREATININE FOR GFR 0.68 MG/DL (0.55-1.30); GLOMERULAR FILTRATION RATE > 90.0 (>45); GLUCOSE, FASTING 296 MG/DL (74-106); POTASSIUM SERUM 3.9 MMOL/L (3.5-5.1); SODIUM LEVEL 137 MMOL/L (136-145)
[2024-10-11 14:21] LABS: INR 0.9; PARTIAL THROMBOPLASTIN TIME 29.1 SECONDS (24.8-34.2); PROTHROMBIN TIME 12.5 SECONDS (12.5-14.5)
[2024-10-11] MEDS ORDERED: ISOVUE-370 76% 100ML VIAL As Ordered ONE (14:27)
[2024-10-11] MEDS ORDERED: HEPARIN SOD (PORCINE) 5000UNITS/ML 1ML VIAL/SYRINGE IV PRN (16:40)
[2024-10-11] MEDS: ASPIRIN 81MG CHEW TABLET PO ONE (16:53)
[2024-10-11] MEDS: HEPARIN SOD (PORCINE) 5000UNITS/ML 1ML VIAL/SYRINGE IV ONE (16:56)
[2024-10-11] MEDS: HEPARIN DRIP 25,000 UNITS in IV 1 EA IV SCH (16:57)
[2024-10-11 19:10] VITALS: BP 143/67; TEMP 96.9; O2SAT 96
== END 2024-10-11 20:10 | disposition short-term general hospital (02) ==
LOC: M ED 11:53
DX: I21.4 Non-ST elevation (NSTEMI) myocardial infarction (principal); J44.9 Chronic obstructive pulmonary disease, unspecified; F17.210 Nicotine dependence, cigarettes, uncomplicated; Z88.0 Allergy status to penicillin; Z88.8 Allergy status to other drugs, medicaments and biological substances
CPT/HCPCS: 71275; 74174; 80048; 84484; 85025; 85610; 85730; 93005; 93979; 96374; 96375; 99285; Q9967

== ENCOUNTER → 2024-11-06 | Outpatient (CLI) | payer MEDICARE, MEDICAID ==
[~2024-11-06] VITALS: Ht 170.2 cm; Wt 80.7 kg
[~2024-11-06] MED LIST changes: +ATOR1TAB19 PO; -DRON2.5C11 PO; +DRON2.5C17 PO; +LIDO1ADH93 TOP; -LIDO5DIS41 TOP
[2024-11-06 09:19] VITALS: BP 124/83; O2SAT 94
== END ==
LOC: M PAL 09:02
PROVIDERS: ATTEND Physician Assistant
DX: Z51.5 Encounter for palliative care (principal); Z66 Do not resuscitate; C56.9 Malignant neoplasm of unspecified ovary; S21.109A Unspecified open wound of unspecified front wall of thorax without penetration into thoracic cavity, initial encounter; Y92.9 Unspecified place or not applicable; Y93.9 Activity, unspecified; Z79.891 Long term (current) use of opiate analgesic; Z88.0 Allergy status to penicillin; Z88.1 Allergy status to other antibiotic agents; Z88.6 Allergy status to analgesic agent

== ENCOUNTER → 2025-01-15 | Outpatient (CLI) | payer OTHER, MEDICAID, MEDICARE ==
[~2025-01-15] VITALS: Ht 170.2 cm; Wt 74.1 kg
[~2025-01-15] MED LIST changes: +OXYC-1 PO
[2025-01-15 09:27] VITALS: BP 152/69; O2SAT 94
== END ==
LOC: M PAL 08:59
PROVIDERS: ATTEND Physician Assistant
DX: Z51.5 Encounter for palliative care (principal); Z66 Do not resuscitate; C56.9 Malignant neoplasm of unspecified ovary; C76.1 Malignant neoplasm of thorax; R22.2 Localized swelling, mass and lump, trunk; Z79.891 Long term (current) use of opiate analgesic; Z88.0 Allergy status to penicillin; Z88.1 Allergy status to other antibiotic agents; Z88.8 Allergy status to other drugs, medicaments and biological substances; Z79.899 Other long term (current) drug therapy; Z79.82 Long term (current) use of aspirin; Z79.02 Long term (current) use of antithrombotics/antiplatelets

== ENCOUNTER → 2025-05-06 | Outpatient (CLI) | payer OTHER, MEDICAID, MEDICARE ==
[~2025-05-06] MED LIST changes: +LETR2.5T2 PO; +METF-838; +OXYC10TA12 PO; +TRES1INJ2
== END ==
LOC: M PAL 09:46
PROVIDERS: ATTEND Physician Assistant
DX: Z51.5 Encounter for palliative care (principal); Z66 Do not resuscitate; C56.9 Malignant neoplasm of unspecified ovary; Z76.1 Encounter for health supervision and care of foundling; S21.109A Unspecified open wound of unspecified front wall of thorax without penetration into thoracic cavity, initial encounter; Z79.891 Long term (current) use of opiate analgesic; Z88.0 Allergy status to penicillin; Z88.1 Allergy status to other antibiotic agents; Z88.6 Allergy status to analgesic agent; Z79.899 Other long term (current) drug therapy; Z79.82 Long term (current) use of aspirin; Z79.02 Long term (current) use of antithrombotics/antiplatelets; Z79.83 Long term (current) use of bisphosphonates